=== PATIENT | male | born 1950 | race Caucasian/White ===

== ENCOUNTER 2018-09-11 17:11 | Inpatient (IN) | payer MEDICARE ==
[2018-09-11] VITALS (10 sets, daily range): BP systolic 108–137; BP diastolic 58–98; BMI 27.7
[~2018-09-11] VITALS: Ht 172.7 cm; Wt 78.1 kg
[2018-09-11 17:54] LABS: BASOPHILS 0.1 % (0-2); EOSINOPHILS 0 % (0-7); HEMATOCRIT 48.2 % (42.0-54.0); HEMOGLOBIN 15.9 g/dL (13.5-17.5); IMMATURE GRANULOCYTES 0.6 % (0-5); LYMPHOCYTES 3.1 % (15-50); MCH 30.1 pg (26.0-34.0); MCV 91.1 fL (80.0-100.0); MEAN PLATELET VOLUME 10.1 fL (7.4-10.4); MONOCYTES 5.9 % (2-11); NEUTROPHILS 90.3 % (40-80); PLATELET COUNT 155 10x3/uL (130-400); RBC 5.29 10x6/uL (4.20-6.10); RDW 15.6 % (11.5-14.5); WBC 7.1 10x3/uL (4.8-10.8)
[2018-09-11 18:09] LABS: ALBUMIN 2.3 g/dL (3.4-5.0); ANION GAP 7.5 mmol/L (8-16); BILIRUBIN - TOTAL 1.11 mg/dL (0.2-1.3); CALCIUM 8.8 mg/dL (8.5-10.1); CARBON DIOXIDE 34.3 mmol/L (21.0-32.0); CREATININE - SERUM 1.1 mg/dL (0.6-1.3); POTASSIUM - SERUM 4.8 mmol/L (3.5-5.1); PROTEIN - SERUM 7.1 g/dL (6.4-8.2)
[2018-09-11 19:43] LABS: CKMB 3.3 U/L (0.0-3.6); CREATINE KINASE 47 UL (21-232); TROPONIN-I 0.028 ng/mL (0.000-0.060)
--- NOTE | 2018-09-11 20:35 | NUR ---
RECEIVED PT FROM ED TO ROOM 2307 AT THIS TIME. PT IS INTUBATED AND SEDATED ON THE VENT. BILAT WRIST RESTRIANTS NOTED. PT DOES BECOME AGITATED WHEN MOVED OR TURNED. PT WILL OPEN EYES AND FOLLOW COMMANDS, WELL ANSWER QUESTIONS WITH A NOD. ADMISSION ASSESSMENT COMPLETED, SEE FLOWSHEET FOR DETAILS. PT'S DAUGHTER PRESENT AT BEDSIDE TO ANSWER QUESTIONS TO THE BEST OF HER ABILITY. VSS. WILL CONTINUE TO MONITOR.
[2018-09-11] MEDS ORDERED: FUROSEMIDE20 MG PO (21:28)
--- NOTE | 2018-09-11 23:00 | NUR ---
REASSESSMENT COMPLETED, SEE FLOWSHEET FOR DETAILS. PT IS IN BED INTUBATED AND SEDATED. PT REPOSITIONED FOR COMFORT. NO SIGNS OF ACUTE DISTRESS. WILL CONTINUE TO MONITOR.
[2018-09-12] VITALS (24 sets, daily range): BP systolic 83–175; BP diastolic 63–114; BMI 27.1
--- NOTE | 2018-09-12 01:00 | NUR ---
PT IS LAYING IN BED INTUBATED AND SEDATED. PT REPOSITIONED FOR COMFORT. NO SIGNS OF ACUTE DISTRESS. WILL CONTINUE TO MONITOR.
[2018-09-12 01:36] LABS: CKMB 1.8 U/L (0.0-3.6); CREATINE KINASE 25 UL (21-232); TROPONIN-I 0.048 ng/mL (0.000-0.060)
--- NOTE | 2018-09-12 03:00 | NUR ---
REASSESSMENT COMPLETED, SEE FLOWSHEET FOR DETAILS. PT IS RESTING IN BED WITH EYES CLOSED, SEDATED AND INTUBATED. NO SIGNS OF ACUTE DISTRESS NOTED. WILL CONTINUE TO MONITOR.
[2018-09-12 03:23] LABS: APPEARANCE TURBID (CLEAR); BILIRUBIN NEGATIVE (NEGATIVE); COLOR YELLOW (YELLOW); GLUCOSE NEGATIVE (NEGATIVE); KETONE SMALL mg/dL (NEGATIVE); NITRITE NEGATIVE (NEGATIVE); PROTEIN 1+ mg/dL (NEGATIVE); UROBILINOGEN NORMAL (NORMAL)
[2018-09-12 03:25] LABS: BACTERIA MODERATE /hpf (NONE SEEN); EPITHELIAL CELLS OCC /hpf (0-5); RED CELLS - URINE 0-5 /hpf (0-5); WHITE CELLS - URINE OCC /hpf (0-5)
[2018-09-12 03:26] LABS: AMORPHOUS SEDIMENT >1+ /lpf (NONE SEEN)
--- NOTE | 2018-09-12 07:25 | NUR ---
REPORT RECEIVED. ASSESSMENT COMPLETE PER FLOW SHEET. ORAL ENDOTRACH CARE ADM. REPOSITIONED FOR COMFORT. NO NEW CHANGES NOTED. LAB AT BEDSIDE. WILL CONTINUE TO MONITOR VSS
[2018-09-12 07:44] LABS: BASOPHILS 0.2 % (0-2); EOSINOPHILS 0 % (0-7); HEMATOCRIT 40.2 % (42.0-54.0); HEMOGLOBIN 13.1 g/dL (13.5-17.5); IMMATURE GRANULOCYTES 0.2 % (0-5); LYMPHOCYTES 8.1 % (15-50); MCH 29.5 pg (26.0-34.0); MCHC 32.6 g/dL (31.0-37.0); MCV 90.5 fL (80.0-100.0); MEAN PLATELET VOLUME 9.5 fL (7.4-10.4); MONOCYTES 9.2 % (2-11); NEUTROPHILS 82.3 % (40-80); PLATELET COUNT 133 10x3/uL (130-400); RBC 4.44 10x6/uL (4.20-6.10); RDW 15.7 % (11.5-14.5)
[2018-09-12 07:55] LABS: WBC 4.6 10x3/uL (4.8-10.8)
[2018-09-12 08:13] LABS: ALBUMIN 1.8 g/dL (3.4-5.0); ALKALINE PHOSPHATASE 49 U/L (46-116); ALT (SGPT) 17 U/L (10-68); BILIRUBIN - TOTAL 0.66 mg/dL (0.2-1.3); CALC OSMOLALITY 288 mosm/kg (275-300); CALCIUM 8.6 mg/dL (8.5-10.1); CARBON DIOXIDE 34.5 mmol/L (21.0-32.0); CHLORIDE - SERUM 99 mmol/L (98-107); CKMB 1.2 U/L (0.0-3.6); CREATINE KINASE 18 UL (21-232); CREATININE - SERUM 0.9 mg/dL (0.6-1.3); GLUCOSE 168 mg/dL (74-106); POTASSIUM - SERUM 4.2 mmol/L (3.5-5.1); PROTEIN - SERUM 5.7 g/dL (6.4-8.2); SODIUM 139 mmol/L (136-145); TROPONIN-I 0.032 ng/mL (0.000-0.060); UREA NITROGEN 33 mg/dL (7-18); eGFR NON AFRICAN AMERICAN 90 mL/min (90-120)
--- NOTE | 2018-09-12 08:23 | NUR ---
DR OGDEN AT BEDSIDE. GIVEN UPDATE. FIO2 DECREASED FROM 100% TO 80% PER ORDER WILL CONTINUE TO MONITOR
--- NOTE | 2018-09-12 08:33 | NUR ---
FAMILY CALLED CONSENTS OBTAINED FOR BEDSIDE BRONCHOSCOPY VERIFIED WITH ASAD HINKLE. WILL CONTINUE TO MONITOR
--- NOTE | 2018-09-12 09:20 | NUR ---
DR OGDEN AT BEDSIDE BRONCH ADM.
--- NOTE | 2018-09-12 11:00 | NUR ---
REASSESSMENT COMPLETE PER FLOW SHEET. VSS. NO NEW CHANGES WILL CONTNIUE TO MONITOR
--- NOTE | 2018-09-12 12:15 | NUR ---
VENT ALARMING ORAL CARE ADM NEEDS MET
--- NOTE | 2018-09-12 13:20 | NUR ---
ORAL ENDOTRACH CARE ADM. REPOSITIONED FOR COMFORT. WILL CONTINUE TO MONITOR
--- NOTE | 2018-09-12 15:00 | NUR ---
REASSESSMENT COMPLETE PER FLOW SHEET. VSS. NO NEW CHANGES PT RESTING COMFORTABLY WILL CONTINUE JARROD ONITOR
--- NOTE | 2018-09-12 15:37 | EC ---
PATIENT:JAMMIE GREEN DATE OF SERVICE: 09/11/18 SEX: M MEDICAL RECORD: [id number] DATE OF : [birth year] LOCATION:[facility] AGE OF PATIENT: 67 ADMISSION DATE: 09/11/18 REFERRING PHYSICIAN: INTERPRETING PHYSICIAN: RUSSELL AVILA MD ECHOCARDIOGRAM REPORT ECHO CHARGES 4 ECHO COMPLETE Date: 09/12/18 CLINICAL DIAGNOSIS: DYSPNEA ECHOCARDIOGRAPHIC MEASUREMENTS (adult normal given) AC root (d.<3.7cm) 3.6 cm LV Septum d (<1.2 cm> 1.6 cm Valve Excursion 1.8 cm LV Septum (systole) 1.7 cm Left Atria (s.<4.0cm> 4.2 cm LVPW d(<1.2cm) 1.6 cm RV (d.<2.3cm) 4.4 cm LVPW (sytole) 1.7 cm LV diastole(<5.6CM) 5.4 cm MV E-F(>70mm/sec) cm LV systole 4.5 cm LVOT Diameter 2.0 cm MV exc.(>10mm) 1.4 cm Est.ejection fraction (50-75%) % DOPPLER: LVIT cm/sec A 83.0 cm/sec E 45.0 cm/sec LA cm/sec RVSP 41 mmHg LVOT 74 cm/sec AOP1/2T m/s Asc. Ao 146 cm/sec RVOT 60 cm/sec RA cm/sec PA 85 cm/sec AV Gradient Peak 8.49 mmHg AV Mean 4.94 mmHg AV Area 1.5 cm MV Gradient Peak 3.95 mmHg MV Mean 1.37 mmHg MV Area cm COMMENTS: Form Presser: 2 VIKAS LEVY Food Processor: 3 Dr. Keenan TAPE# PACS Pericardial Effusion N DATE OF SERVICE: Adequate 2D, color flow, spectral Doppler, and M-Mode. LVH is present. LV internal dimensions are normal. LV is globally hypokinetic with reduced EF, estimated EF 30% to 35%. Aortic valve is tricuspid. No evidence of stenosis on Doppler interrogation. Left atrium is minimally dilated at 4.2 cm. Mitral valve shows no prolapse. Mild MR. Right-sided chambers are grossly normal. Mild TR. TRANSINT:[id number] Voice Confirmation ID: [id number] DOCUMENT ID: [id number] ECHOCARDIOGRAM REPORT [id number] JAMMIE GREEN,RUSSELL Beltrán MD at 1537 CC: [id number] DICTATION DATE: 09/12/18 1320 MEDIA RELATIONS DIRECTOR: 09/12/18 1453 ADM IN [facility] [address] [id number]
--- NOTE | 2018-09-12 16:55 | MORECARE ---
CASE MANAGEMENT DISCHARGE SUMMARY PATIENT: JAMMIE GREEN UNIT: [id number] ADM DATE: 09/11/18 AGE: 67 : 51 SEX: M ROOM/BED: D.2307 AUTHOR: DIRK COCHRAN PHYSICIAN: REFERRING PHYSICIAN: CATRACHO MERRITT DO DATE OF SERVICE: 09/12/18 Discharge Plan Patient Name: [facility]AMMIE GREEN [facility] [facility] 1950 Planned Disposition: Home Anticipated Discharge Date: Discharge Date: Expected LOS: Initial Reviewer: [email or web address] Initial Review Date: 09/11/2018 Generated: 09/12/18 5:55 pm Patient Name: JAMMIE GREEN Page [phone] at 1655 All edits/amendments must be made on the electronic document DICTATION DATE: 09/12/181653 ZOO CARETAKER: CHRIS 09/12/181653 RPT#: [id number] MD DATE: STATUS: ADM IN [facility] [address] [place] [address] END OF REPORT
--- NOTE | 2018-09-12 17:00 | NUR ---
ORAL ENDOTRACH CARE ADM. REPOSITIONED FOR COMFORT VSS WILL CONTINUE TO MONITOR
--- NOTE | 2018-09-12 17:04 | MORECARE ---
CASE MANAGEMENT DISCHARGE SUMMARY PATIENT: JAMMIE GREEN UNIT: [id number] ADM DATE: 09/11/18 AGE: 67 : 51 SEX: M ROOM/BED: D.2307 AUTHOR: DIRK COCHRAN PHYSICIAN: REFERRING PHYSICIAN: CATRACHO MERRITT DO DATE OF SERVICE: 09/12/18 Discharge Plan Patient Name: JAMMIE GREEN [facility] [facility] 1950 Planned Disposition: Home Anticipated Discharge Date: Discharge Date: Expected LOS: Initial Reviewer: [email or web address] Initial Review Date: 09/11/2018 Generated: 09/12/18 6:04 pm DCPIA - Discharge Planning Initial Assessment Updated by [email or web address]: Becky Fontenot on 09/12/18 4:58 pm * Is the patient Alert and Oriented? Yes * How many steps to enter\exit or inside your home? * PCP CORWIN BEAL * Pharmacy [facility] * Preadmission Environment Home with Family * ADLs Independent * Equipment Oxygen * Other Equipment HOME 02 & PORT 02, NEBULIZER - [facility] * List name and contact numbers for known caregivers / representatives who currently or will assist patient after discharge: ABIOLA ALONSO - DAUGHTER- [phone] * Verbal permission to speak to the caregivers and representatives has been obtained from the patient. N/A * Community resources currently utilized None * Additional services required to return to the preadmission environment? No * Can the patient safely return to the preadmission environment? Yes * Has this patient been hospitalized within the prior 30 days at any hospital? Yes Last DP export: 09/12/18 3:55 p Patient Name: JAMMIE GREEN Page [phone] at 1704 All edits/amendments must be made on the electronic document DICTATION DATE: 09/12/181703 RADIATION ONCOLOGY MANAGER: CHRIS 09/12/181703 RPT#: [id number] DC DATE: STATUS: ADM IN [facility] [address] [place] [address] END OF REPORT
--- NOTE | 2018-09-12 17:15 | MORECARE ---
CASE MANAGEMENT DISCHARGE SUMMARY PATIENT: JAMMIE GREEN UNIT: [id number] ADM DATE: 09/11/18 AGE: 67 : 51 SEX: M ROOM/BED: D.2307 AUTHOR: SAMMIE,DOC PHYSICIAN: REFERRING PHYSICIAN: CATRACHO MERRITT DO DATE OF SERVICE: 09/12/18 Discharge Plan Patient Name: JAMMIE GREEN Facility: [facility]:[place] : 1950 Planned Disposition: Home Anticipated Discharge Date: Discharge Date: Expected LOS: Initial Reviewer: [email or web address] Initial Review Date: 09/11/2018 Generated: 09/12/18 6:15 pm Comments DCP- Discharge Planning Updated by [email or web address]: Becky Fontenot on 09/12/18 4:[address] Patient Name: JAMMIE GREEN Admission Status: ER Accout number: [id number] Admission Date: 09-11-2018 : 1950 Admission Diagnosis: Attending: CATRACHO MERRITT Current LOS: 1 Anticipated DC Date: Planned Disposition: Home Primary Insurance: MEDICARE A & B Discharge Planning Comments: CM met with daughter at bedside patient is currently intubated on vent. CM explained role and received verbal consent to evaluate. Patient lives with daughter Poornima. Poornima stated that the patient was in hospital in [place] 3 weeks ago for COPD. He was discharged with home and portable 02 with [facility]. They had set up patient with Home Health but patient refused once they came to admit. Poornima states that he will need home health when discharged from here. Poornima will get back with CM on what agency she wants to go with. CM will continue to follow and assist as needed with discharge planning / needs. Elastic Yarn Twister: Becky Fontenot DCPIA - Discharge Planning Initial Assessment Updated by [email or web address]: Becky Fontenot on 09/12/18 4:58 pm * Is the patient Alert and Oriented? Yes * How many steps to enter\exit or inside your home? * PCP CORWIN BEAL * Pharmacy [facility] * Preadmission Environment Home with Family * ADLs Independent * Equipment Oxygen * Other Equipment HOME 02 & PORT 02, NEBULIZER - [facility] * List name and contact numbers for known caregivers / representatives who currently or will assist patient after discharge: POORNIMA ALONSO - DAUGHTER- [phone] * Verbal permission to speak to the caregivers and representatives has been obtained from the patient. N/A * Community resources currently utilized None * Additional services required to return to the preadmission environment? No * Can the patient safely return to the preadmission environment? Yes * Has this patient been hospitalized within the prior 30 days at any hospital? Yes Last DP export: 09/12/18 4:04 p Patient Name: JAMMIE GREEN Page [phone] at 1715 All edits/amendments must be made on the electronic document DICTATION DATE: 09/12/181714 CURRICULUM DEVELOPMENT SPECIALIST: CHRIS 09/12/181714 RPT#: [id number] DC DATE: STATUS: ADM IN [facility] [address] [place] [address] END OF REPORT
--- NOTE | 2018-09-12 17:17 | CN ---
PATIENT NAME:JAMMIE GREEN MEDICAL RECORD: [id number] : 52 LOCATION:[facility]2307 ADMIT DATE: 09/11/18 ACCOUNT: [id number] CONSULTING PHYSICIAN: KWESI BATRES MD REFERRING PHYSICIAN: CATRACHO MERRITT DO DATE OF CONSULTATION: 09/12/2018 CARDIOLOGY CONSULTATION DIAGNOSES: 1. Atrial fibrillation. 2. Tachycardia. 3. Respiratory failure. 4. Pneumonia. 5. Pulmonary edema. 6. Coronary artery disease. 7. Congestive heart failure. HISTORY OF PRESENT ILLNESS: Mr. Green presents to an [facility] hospital with acute respiratory failure requiring intubation. He has a daughter, who states that he does have a history of coronary artery disease. He has had a myocardial infarction in the past and has had congestive heart failure in the past as well; however, his cardiac details are unknown. He is now intubated. Chest x-ray is compatible with bilateral pneumonia as well as pulmonary edema. He is in atrial fibrillation. The daughter thinks that this is chronic. His heart rate is in the 110-120 range. It is unknown what medications he is on at home. PHYSICAL EXAMINATION: GENERAL APPEARANCE: Well-nourished, well-developed, appears stated age. Level of distress, comfortable. PSYCHIATRIC: Mental status, alert, normal affect. Orientation, oriented to time, place and person. EYES: Lids and conjunctiva, noninjected. No discharge, no pallor. ENT: Lips, teeth, gums, normal dentition. Oropharynx, no cyanosis, no pallor. NECK: Carotid arteries, bilateral normal upstroke, no bruits, no thrills. JUGULAR VEINS: No jugular venous pressure or distention. CERVICAL LYMPH NODES: Nontender, nonenlarged. THYROID: Not enlarged. Nontender. No nodules. LUNGS: Respiratory effort, unlabored. CHEST: He has dullness bilaterally at the bases along with crackles above that. CARDIOVASCULAR: Irregularly irregular, tachycardic with atrial fibrillation. EXTREMITIES: No cyanosis, no edema. Peripheral pulses, full and equal in all extremities, except as noted. No bruits appreciated. ABDOMEN: Soft, nondistended. Normal aorta. No bruit. Nontender. No masses. Liver, nontender, no hepatomegaly. Spleen, nontender, no splenomegaly. MUSCULOSKELETAL: No joint tenderness. No joint swelling. No erythema. NEUROLOGICAL: Normal gait, normal strength, normal tone. SKIN: Warm and dry. OVERALL IMPRESSION: Atrial fibrillation. At this time, his systolic blood pressure is in the 90-100 range limiting use of beta-blockers or calcium channel blockers. We will use digoxin 0.5 mg IV load, followed by 0.25 mg times 4 doses. Hopefully, this will give better heart rate control along with not dropping his blood pressure any further. We will get an echocardiogram today to evaluate his LV function in light of the pulmonary edema and possible congestive CONSULT REPORT [id number] JAMMIE GREEN heart failure. TRANSINT:[id number] Voice Confirmation ID: [id number] DOCUMENT ID: [id number] KWESI BATRES MD at 1717 CC: [id number] DICTATION DATE: 09/12/18907 TICKET MAKER: 09/12/18 0952 ADM IN [facility] [address] [place] [address]
--- NOTE | 2018-09-12 19:43 | NUR ---
REPORT RECEIVED. PT SEDATED, ON VENT A/C 20, 550, 50%, 5.0. ABRAHAM CATHETER PATENT WITH KEYANA URINE NOTED. HR 85-90. BP 159/103, SPO2 93%. WILL CONTINUE TO OBSERVE.
[2018-09-13] VITALS (24 sets, daily range): BP systolic 92–180; BP diastolic 55–113
[2018-09-13 04:31] LABS: BASOPHILS 0.1 % (0-2); EOSINOPHILS 0 % (0-7); HEMATOCRIT 41.6 % (42.0-54.0); HEMOGLOBIN 13.3 g/dL (13.5-17.5); IMMATURE GRANULOCYTES 0.4 % (0-5); MCH 29.4 pg (26.0-34.0); MCV 91.8 fL (80.0-100.0); NEUTROPHILS 82.5 % (40-80); RBC 4.53 10x6/uL (4.20-6.10); RDW 15.9 % (11.5-14.5)
[2018-09-13 04:37] LABS: PLATELET COUNT 170 10x3/uL (130-400)
[2018-09-13 04:48] LABS: ALBUMIN 1.9 g/dL (3.4-5.0); ALKALINE PHOSPHATASE 52 U/L (46-116); ALT (SGPT) 16 U/L (10-68); BILIRUBIN - TOTAL 0.55 mg/dL (0.2-1.3); CALC OSMOLALITY 288 mosm/kg (275-300); CALCIUM 8.5 mg/dL (8.5-10.1); CARBON DIOXIDE 37.6 mmol/L (21.0-32.0); CHLORIDE - SERUM 100 mmol/L (98-107); CREATININE - SERUM 0.9 mg/dL (0.6-1.3); GLUCOSE 141 mg/dL (74-106); MAGNESIUM - SERUM 2.1 mg/dL (1.8-2.4); POTASSIUM - SERUM 4.3 mmol/L (3.5-5.1); SODIUM 140 mmol/L (136-145); UREA NITROGEN 35 mg/dL (7-18); eGFR NON AFRICAN AMERICAN 90 mL/min (90-120)
--- NOTE | 2018-09-13 07:15 | NUR ---
REPORT RECIEVED, SHIFT ASSESSMENT COMPLETE, PT IS SEDATED ON VENT, ALL PPP, VSS, WILL CON'T TO MONITOR
--- NOTE | 2018-09-13 09:15 | NUR ---
DR. MERRITT AT BEDSIDE, UPDATE GIVEN, NEW ORDERS RECIEVED
--- NOTE | 2018-09-13 09:54 | NUR ---
UPDATE CALLED TO DR. BATRES, NEW ORDERS RECIEVED
--- NOTE | 2018-09-13 10:07 | NUR ---
UPDATE GIVEN TO DAUGHTER ABIOLA OVER PHONE, PASSWORD GIVEN
--- NOTE | 2018-09-13 11:15 | NUR ---
Shift REASSESSMENT COMPLETED- NO NEW CHANGES NOTED, PT RESTING, VITAL SIGNS STABLE AND WILL CONTINUE TO MONITOR
[2018-09-13 12:13] LABS: FUNGUS STAIN Final report (())
[2018-09-13 12:13] LABS: FUNGUS STAIN Final report (())
--- NOTE | 2018-09-13 13:30 | NUR ---
PATIENT TURNED, HAIR WASHED, PERINEAL CARE PROVIDED, ORAL CARE PROVIDED, PATIENT RESTING, WILL CONTINUE TO MONITOR VITAL SIGNS AND RESTRAINTS, BED IN LOW POSITION, BED LOCKED, HOB 40, AND CALL LIGHT WITHIN REACH
--- NOTE | 2018-09-13 16:16 | NUR ---
PATIENT REASSESMENT COMPLETED. PATIENT TURNED. VITAL SIGNS STABLE AND WILL CONTINUE TO MONITOR BED LOW IN POSITION. BED LOCKED. CALL LIGHT WITHIN REACH.
--- NOTE | 2018-09-13 17:00 | NUR ---
PATIENT TURNED, LEFT FOREARM IV DC'D.. NEW 20 GAUGE IV STARTED ON LEFT FOREARM SIGNED AND DATED, SUCTIONED PATIENT, HEELS RAISED, PARTIAL LINEN CHANGE, BED LOW AND LOCKED IN POSITION, PATIENT SLEEPING, VITAL SIGNS STABLE AND WILL CONTINUE TO MONITOR
[2018-09-13 17:10] LABS: ACID FAST SMEAR Negative (()); AFB SPECIMEN PROCESSING Concentration (())
[2018-09-13 17:10] LABS: ACID FAST SMEAR Negative (()); AFB SPECIMEN PROCESSING Concentration (())
--- NOTE | 2018-09-13 19:20 | NUR ---
PT RECEIVED ON SEDATED ON VENT A/C, 20,550,50%,5.0. VSS. ABRAHAM PATENT WITH KEYANA URINE NOTED. NO S/S OF DISTRESS. ASSESSMENT COMPLETED, SEE FLOW SHEET. WILL CONTINUE TO OBSERVE.
--- NOTE | 2018-09-13 22:05 | NUR ---
CONTINUES VENT WITH SEDATION. MEDICATIONS GIVEN PER MAR. PT TOLERATED WELL. ORAL CARE PROVIDED AMD REPOSITIONED. VSS. WILL CONTINUE TO OBSERVE.
--- NOTE | 2018-09-13 23:30 | NUR ---
CONTINUES VENT WITH SEDATION. REASSESSMENT COMPLETED. SEE FLOW SHEET.
[2018-09-14] VITALS (29 sets, daily range): BP systolic 26–150; BP diastolic 67–110
--- NOTE | 2018-09-14 01:45 | NUR ---
PT REPOSITIONED, VSS. NO S/S OF DISTRESS. WILL CONTINUE TO OBSERVE.
[2018-09-14 04:20] LABS: BASOPHILS 0.1 % (0-2); EOSINOPHILS 0.1 % (0-7); HEMATOCRIT 45.2 % (42.0-54.0); HEMOGLOBIN 14.6 g/dL (13.5-17.5); IMMATURE GRANULOCYTES 0.9 % (0-5); LYMPHOCYTES 7.8 % (15-50); MCH 29.7 pg (26.0-34.0); MCHC 32.3 g/dL (31.0-37.0); MCV 91.9 fL (80.0-100.0); MEAN PLATELET VOLUME 9.8 fL (7.4-10.4); MONOCYTES 10.4 % (2-11); NEUTROPHILS 80.7 % (40-80); PLATELET COUNT 177 10x3/uL (130-400); RBC 4.92 10x6/uL (4.20-6.10); RDW 16.2 % (11.5-14.5)
[2018-09-14 04:40] LABS: WBC 9.9 10x3/uL (4.8-10.8)
[2018-09-14 04:41] LABS: ALBUMIN 1.9 g/dL (3.4-5.0); ALKALINE PHOSPHATASE 63 U/L (46-116); ALT (SGPT) 17 U/L (10-68); BILIRUBIN - TOTAL 0.69 mg/dL (0.2-1.3); CALC OSMOLALITY 295 mosm/kg (275-300); CALCIUM 8.4 mg/dL (8.5-10.1); CARBON DIOXIDE 37.5 mmol/L (21.0-32.0); CHLORIDE - SERUM 102 mmol/L (98-107); GLUCOSE 129 mg/dL (74-106); MAGNESIUM - SERUM 2.1 mg/dL (1.8-2.4); PROTEIN - SERUM 6.3 g/dL (6.4-8.2); SODIUM 143 mmol/L (136-145); UREA NITROGEN 37 mg/dL (7-18); eGFR NON AFRICAN AMERICAN 79 mL/min (90-120)
--- NOTE | 2018-09-14 07:15 | NUR ---
REPORT RECIEVED. SHIFT ASSESSMENT COMPLETED. PATIENT TURNED. PATIENT SUCTIONED. PATIENT VERY SEDATED WEANING PROPOFOL PER CARMEL SCALE. BED ALARM ON. BED LOW AND LOCKED. SIDE RAILS X2. ID BAND IN PLACE. CALL LIGHT WITHIN REACH. VITAL SIGNS STABLE WILL CONTINUE TO MONITOR
--- NOTE | 2018-09-14 09:00 | NUR ---
PATIENT SEDATED AND TURNED. ORAL CARE PROVIDED. HEELS RAISED OFF BED. TUBE FEEDING LINE CHANGED PER PROTOCOL. PROPOFOL LINE CHANGED PER PROTOCOL. VSS WILL CONTINUE TO MONITOR.
--- NOTE | 2018-09-14 09:32 | NUR ---
Nutrition follow-up: Pt intubated, sedated. Sedation vacation today. Pressor support trials Glucerna 1.0 started @ 20 ml/hr per Dr. Rose with increase to goal rate of 30 ml/hr Labs reviewed WT: 181# RDN following.
--- NOTE | 2018-09-14 11:00 | NUR ---
PATIENT TURNED. PATIENT BATHED. PARTIAL LINEN CHANGE. SEDATION DECREASED PER CARMEL SCALE. BED LOW AND LOCKED IN POSITION. CALL LIGHT WITHIN REACH.
--- NOTE | 2018-09-14 13:10 | NUR ---
PT SEDATED. PATIENT TURNED PATIENT ON 50% FIO2 22 RR ON MECH VENT. PATIENT FAILED CPAP TRIAL. WILL CONTINUE TO MONITOR. VITAL SIGNS STABLE. CALL LIGHT WITHIN REACH. BED LOW AND LOCKED IN POSITION.
--- NOTE | 2018-09-14 15:31 | NUR ---
PATIENT ALERT AND ORIENTED X4. EVEN UNLABORED BREATHING. SHIFT REASSESMENT COMPLETED. NO CHANGES NOTED. PATIENT STATED RELIEF OF SHOULDER PAIN. SUICIDE RISK ASSESMENT COMPLETED. PATIENT TOLERATED CLEAR LIQUIDS. WILL PROMOTE REST PERIODS. CALL LIGHT WITHIN REACH. BED LOW LOCKED IN POSITION. VSS WILL CONTINUE TO MONITOR.
--- NOTE | 2018-09-14 17:09 | NUR ---
SHIFT REASSESMENT COMPLETED. NO CHANGES NOTED. NEW ABRAHAM STAT LOCK PROVIDED. PATIENT SEDATED. VSS. WILL CONTINUE TO MONITOR.
--- NOTE | 2018-09-14 19:00 | NUR ---
SHIFT ASSESSMENT COMPLETED. VSS.
[2018-09-15] VITALS (16 sets, daily range): BP systolic 125–162; BP diastolic 79–106
--- NOTE | 2018-09-15 01:00 | NUR ---
2300- REASSESSMENT COMPLETE. VSS. 0100- RT AT BEDSIDE. VSS.
--- NOTE | 2018-09-15 03:00 | NUR ---
REASSESSMENT COMPLETE. VSS.
[2018-09-15 03:06] LABS: BASOPHILS 0.3 % (0-2); EOSINOPHILS 0.3 % (0-7); HEMATOCRIT 45.4 % (42.0-54.0); HEMOGLOBIN 14.8 g/dL (13.5-17.5); IMMATURE GRANULOCYTES 4.1 % (0-5); LYMPHOCYTES 10.1 % (15-50); MCH 29.7 pg (26.0-34.0); MCHC 32.6 g/dL (31.0-37.0); MCV 91.2 fL (80.0-100.0); MEAN PLATELET VOLUME 10.2 fL (7.4-10.4); MONOCYTES 11.5 % (2-11); NEUTROPHILS 73.7 % (40-80); PLATELET COUNT 182 10x3/uL (130-400); RBC 4.98 10x6/uL (4.20-6.10); RDW 16.3 % (11.5-14.5)
[2018-09-15 03:18] LABS: ALBUMIN 1.8 g/dL (3.4-5.0); ALKALINE PHOSPHATASE 56 U/L (46-116); ALT (SGPT) 17 U/L (10-68); CALC OSMOLALITY 288 mosm/kg (275-300); CALCIUM 8.2 mg/dL (8.5-10.1); CARBON DIOXIDE 37.4 mmol/L (21.0-32.0); CHLORIDE - SERUM 102 mmol/L (98-107); CREATININE - SERUM 0.9 mg/dL (0.6-1.3); GLUCOSE 125 mg/dL (74-106); MAGNESIUM - SERUM 2.1 mg/dL (1.8-2.4); POTASSIUM - SERUM 4.1 mmol/L (3.5-5.1); PROTEIN - SERUM 6.1 g/dL (6.4-8.2); SODIUM 141 mmol/L (136-145); TRIGLYCERIDE 169 mg/dL (30-200); UREA NITROGEN 33 mg/dL (7-18); eGFR NON AFRICAN AMERICAN 90 mL/min (90-120)
--- NOTE | 2018-09-15 05:00 | NUR ---
VSS. WILL CONTINUE TO MONITOR.
--- NOTE | 2018-09-15 06:41 | NUR ---
NO VISUAL CUES OF DISTRESS NOTED. VSS. WILL MONITOR.
--- NOTE | 2018-09-15 07:32 | NUR ---
REPORT RECIEVED. PATIENT ON VENT AND SEDATED. ASSESSMENT COMPLETED. VSS. WILL CONTINUE TO MONITOR.
--- NOTE | 2018-09-15 09:00 | NUR ---
PT TURNED. PATIENT IS AWAKE. ORAL CARE PROVIDED. BED LOW AND LOCKED IN PLACE. J
--- NOTE | 2018-09-15 09:29 | NUR ---
Nutrition follow-up: TF on hold due to possible extubation today Labs reviewed Wt: 190# RDN following.
--- NOTE | 2018-09-15 13:00 | NUR ---
PATIENT ON BIPAP AT 40%. PATIENT BREATHING 30 BPM. PATIENT TURNED AND COMFORTED. PATIENT STATES 0/10 PAIN. VSS. WILL CONTINUE TO MONITOR AND CALM PATIENT.
--- NOTE | 2018-09-15 15:00 | NUR ---
PATIENT ALERT AND ORIENTED TO SELF. PATIENT IS A LITTLE WEAK. PATIENT CALM AND WATCHING TV. ABRAHAM CARE DONE. REASSESMENT DONE. NO CHANGES NOTED. PATIENT TOLERATED BIPAP WELL. SPO2 97%. CHG BATH DONE AT THIS TIME. ALL LINES UNTANGLED AND LABELED. BED LOW AND LOCKED IN POSITION. CALL LIGHT WITHIN REACH.
--- NOTE | 2018-09-15 16:49 | NUR ---
SPEECH IN ROOM PERFOMRING SWALLOW EVAL.
--- NOTE | 2018-09-15 17:02 | NUR ---
SPOKE WITH PATIENTS DAUGHTER ABIOLA ON THE PHONE TO GIVE UPDATE. PASSOWRD GIVEN. DAUGHTER STATED SHE WOULD VISIT ON 09/16/18.
--- NOTE | 2018-09-15 19:00 | NUR ---
SHIFT ASSESSMENT COMPLETE. NO VISUAL CUES OF DISTRESS NOTED. VSS STABLE. WILL MONITOR,
--- NOTE | 2018-09-15 21:00 | NUR ---
VSS STABLE. NO VISUAL CUES OF DISTRESS NOTED. WILL CONTINUE TO MONITOR.
--- NOTE | 2018-09-15 23:00 | NUR ---
REASSESSMENT COMPLETE. VSS STABLE.
[2018-09-16] VITALS (18 sets, daily range): BP systolic 109–165; BP diastolic 83–106; Ht 172.7 cm; Wt 78.1 kg
--- NOTE | 2018-09-16 01:00 | NUR ---
NO VISUAL CUES OF DISTRESS NOTED. VSS STABLE. WILL CONTINUE TO MONITOR.
[2018-09-16 03:13] LABS: BASOPHILS 0.3 % (0-2); EOSINOPHILS 2.2 % (0-7); HEMATOCRIT 46.6 % (42.0-54.0); IMMATURE GRANULOCYTES 4.7 % (0-5); LYMPHOCYTES 9.3 % (15-50); MCH 29.8 pg (26.0-34.0); MCHC 32.2 g/dL (31.0-37.0); MCV 92.6 fL (80.0-100.0); MONOCYTES 9.4 % (2-11); NEUTROPHILS 74.1 % (40-80); PLATELET COUNT 201 10x3/uL (130-400); RBC 5.03 10x6/uL (4.20-6.10); RDW 16.3 % (11.5-14.5); WBC 10.4 10x3/uL (4.8-10.8)
[2018-09-16 03:35] LABS: ALBUMIN 1.9 g/dL (3.4-5.0); ALKALINE PHOSPHATASE 54 U/L (46-116); ALT (SGPT) 14 U/L (10-68); BILIRUBIN - TOTAL 1.02 mg/dL (0.2-1.3); CALC OSMOLALITY 281 mosm/kg (275-300); CALCIUM 9.2 mg/dL (8.5-10.1); CARBON DIOXIDE 34.6 mmol/L (21.0-32.0); CHLORIDE - SERUM 100 mmol/L (98-107); CREATININE - SERUM 0.8 mg/dL (0.6-1.3); GLUCOSE 99 mg/dL (74-106); MAGNESIUM - SERUM 2.1 mg/dL (1.8-2.4); POTASSIUM - SERUM 4.1 mmol/L (3.5-5.1); PROTEIN - SERUM 6.6 g/dL (6.4-8.2); SODIUM 138 mmol/L (136-145); UREA NITROGEN 30 mg/dL (7-18); eGFR NON AFRICAN AMERICAN > 90 mL/min (90-120)
--- NOTE | 2018-09-16 08:05 | NUR ---
DISCUSSED DOBUTIMINE GTT WITH DR BATRES BY PHONE. REPORTED RATE AND BP. DR BATRES ORDERED TO DC DOBUTIMINE GTT. REPORTED BP 165/105 AND HR AFIB AT 102 TO 142.
--- NOTE | 2018-09-16 09:04 | NUR ---
PT AT 20% OF HIS MEAL. SPO2 DROPS TO 88% AND SL SOB. PLACED BACK ON BIPAP 40%,
--- NOTE | 2018-09-16 13:21 | NUR ---
1100- DR MERRITT AND DR HUDSON HERE. PT ON BIPAP. RESP EASY.
--- NOTE | 2018-09-16 13:22 | NUR ---
1200- PT OFF BIPAP AND LUNCH TRAY SERVED. FAMILY AT BS. PT ON 4L OXYMIZER.
--- NOTE | 2018-09-16 16:01 | NUR ---
PT ASKING FOR BIPAP TO BE TAKEN OFF. BIPAP TAKEN OFF AND 4L OXYMIZER PLACED. PT TOOK OXYMIZER OFF. SPO2 DROPS TO 84% QUICKLY. BIPAP PLACED BACK ON AT 40% AND SPO2 RETURNS TO 95% AFTER FEW MIN.
--- NOTE | 2018-09-16 19:00 | NUR ---
PT IN BED IN LOW FOWLERS POSITION. NO VISUAL CUES OF DISTRESS NOTE. VSS. WILL MONITOR,
--- NOTE | 2018-09-16 21:00 | NUR ---
PT IN BED IN LOW FOWLERS POSITION. NO VISUAL CUES OF DISTRESS NOTE. VSS. WILL MONITOR,
--- NOTE | 2018-09-16 23:00 | NUR ---
PT IN BED IN LOW FOWLERS POSITION. NO VISUAL CUES OF DISTRESS NOTE. VSS. WILL MONITOR,
[2018-09-17] VITALS (24 sets, daily range): BP systolic 104–145; BP diastolic 72–106
--- NOTE | 2018-09-17 01:00 | NUR ---
PT IN BED IN LOW FOWLERS POSITION. NO VISUAL CUES OF DISTRESS NOTE. VSS. WILL MONITOR,
[2018-09-17 03:05] LABS: BASOPHILS 0.4 % (0-2); EOSINOPHILS 4.7 % (0-7); HEMATOCRIT 46.7 % (42.0-54.0); HEMOGLOBIN 15.4 g/dL (13.5-17.5); IMMATURE GRANULOCYTES 5.7 % (0-5); LYMPHOCYTES 11.7 % (15-50); MCH 29.7 pg (26.0-34.0); MEAN PLATELET VOLUME 9.7 fL (7.4-10.4); MONOCYTES 9.6 % (2-11); NEUTROPHILS 67.9 % (40-80); PLATELET COUNT 205 10x3/uL (130-400); RBC 5.18 10x6/uL (4.20-6.10); RDW 15.8 % (11.5-14.5); WBC 10.2 10x3/uL (4.8-10.8)
[2018-09-17 03:12] LABS: MCV 90.2 fL (80.0-100.0)
[2018-09-17 03:17] LABS: CALC OSMOLALITY 276 mosm/kg (275-300); CALCIUM 8.7 mg/dL (8.5-10.1); CARBON DIOXIDE 33.3 mmol/L (21.0-32.0); CHLORIDE - SERUM 97 mmol/L (98-107); CREATININE - SERUM 0.8 mg/dL (0.6-1.3); GLUCOSE 108 mg/dL (74-106); MAGNESIUM - SERUM 1.8 mg/dL (1.8-2.4); POTASSIUM - SERUM 4.3 mmol/L (3.5-5.1); SODIUM 135 mmol/L (136-145); UREA NITROGEN 28 mg/dL (7-18); eGFR NON AFRICAN AMERICAN > 90 mL/min (90-120)
--- NOTE | 2018-09-17 07:30 | NUR ---
ON BI PAP 40% RESTING COMFORTABLY NO DISTRESS. IV RIGHT WRIST WITHOUT REDNESS OR SWELLING INFUSING WITH NS AT 10 ML HOUR. MONITOR IRREGULAR. ABRAHAM CATH PATENT DRAINING CLEAR YELLOW URINE.
--- NOTE | 2018-09-17 09:30 | NUR ---
AWAKE OFF BIPAP ON NC. COUGHING UP LARGE AMOUNT WHITE CLEAR SPUTUM. BREAKFAST SERVED. DENIES PAIN. STATES LEFT LEG HAS BEEN SWOLLEN FOR ABOUT AN YEAR NOW. STATES LAST NIGHT BEST NIGHT SLEEP HE HAS HAD IN ALONG TIME. FEEDING SELF PO MEDS GIVEN NO DIFFICULTY SWALLOWING. DR. MERRITT HERE OK TO GET UP IN CHAIR TODAY
--- NOTE | 2018-09-17 11:30 | NUR ---
LUNCH SERVED ATE WELL. NO SWALLOWING DIFFICULTIES. UP IN CHAIR AT BEDSIDE WITH ASSISTANCES FROM STAFF. COULD NOT STAND ALONE. TOTALLY DEPENDENT ON STAFF TO STAND UP AND TRANSFER. RESP DEEP AND REGULAR GOOD COUGH EFFORT THICK WHITE CLEAR SPUTUM.
--- NOTE | 2018-09-17 13:30 | NUR ---
RETURN TO BED PER PHYSICAL THERAPY. SOME IMPROVEMENT STANDING, STILL NEEDS ASSISTANCES TO TRANSFER. TOLERATED FAIR.
--- NOTE | 2018-09-17 15:30 | NUR ---
REFUSES BATH WANTS TO HELP HIM. RESTING WELL WATCHING TV. GOOD COUGH EFFORT.
--- NOTE | 2018-09-17 16:30 | NUR ---
SUPPER TRAY SERVED. ATE WELL. NO DISTRESS. WATCHING TV. NO DIFFICULTY SWALLOWING. STATES HE COULD EAT HAMBURGER IF GIVEN TO HIM.
--- NOTE | 2018-09-17 18:30 | NUR ---
NO RESP DISTRESS. GOOD COUGH EFFORT THICK WHITE CLEAR SPUTUM. WATHCING TV. GOOD APPETITE. TAKING FLUIDS WELL.
--- NOTE | 2018-09-17 19:00 | NUR ---
REPORT RECEIVED. RECEIVED PATIENT IN BED. AWAKE AND ALERT. ORIENTED X 4. SPEECH CLEAR. SHIFT ASSESSMENT COMPLETED AT THIS TIME WITH NO ACUTE DISTRESS OBSERVED. MONITORS CONNECTED TO PATIENT WITH ALARMS SET. VSS
--- NOTE | 2018-09-17 21:00 | NUR ---
AWAKE AND ALERT. VSS.
--- NOTE | 2018-09-17 23:00 | NUR ---
BIPAP SECURED ON PATIENT AT ORDERED SETTINGS. REASSESSMENT COMPLETED PER FLOW SHEET AT THIS TIME WITH NO CHANGES OR ACUTE DISTRESS OBSERVED. VSS
[2018-09-18] VITALS (24 sets, daily range): BP systolic 108–164; BP diastolic 69–107
--- NOTE | 2018-09-18 01:00 | NUR ---
RESTING WITH EYES CLOSED, ROUSES EASILY. VSS.
--- NOTE | 2018-09-18 03:00 | NUR ---
REASSESSMENT COMPLETED PER FLOW SHEET AT THIS TIME WITH NO CHANGES OR ACUTE DISTRESS OBSERVED. VSS
[2018-09-18 03:53] LABS: BASOPHILS 0.2 % (0-2); EOSINOPHILS 5.7 % (0-7); HEMATOCRIT 45.8 % (42.0-54.0); HEMOGLOBIN 15.2 g/dL (13.5-17.5); IMMATURE GRANULOCYTES 4.7 % (0-5); LYMPHOCYTES 12.1 % (15-50); MCHC 33.2 g/dL (31.0-37.0); MCV 90.5 fL (80.0-100.0); MEAN PLATELET VOLUME 9.7 fL (7.4-10.4); MONOCYTES 10.1 % (2-11); NEUTROPHILS 67.2 % (40-80); PLATELET COUNT 223 10x3/uL (130-400); RBC 5.06 10x6/uL (4.20-6.10); RDW 15.6 % (11.5-14.5); WBC 9.4 10x3/uL (4.8-10.8)
[2018-09-18 04:04] LABS: CALC OSMOLALITY 274 mosm/kg (275-300); CALCIUM 8.5 mg/dL (8.5-10.1); CARBON DIOXIDE 37.7 mmol/L (21.0-32.0); CHLORIDE - SERUM 97 mmol/L (98-107); GLUCOSE 101 mg/dL (74-106); MAGNESIUM - SERUM 1.7 mg/dL (1.8-2.4); POTASSIUM - SERUM 4.3 mmol/L (3.5-5.1); SODIUM 135 mmol/L (136-145); UREA NITROGEN 27 mg/dL (7-18); eGFR NON AFRICAN AMERICAN 79 mL/min (90-120)
--- NOTE | 2018-09-18 05:00 | NUR ---
AWAKE AND ALERT. VSS. NO ACUTE DISTRESS OBSERVED. CALL LIGHT IN REACH
--- NOTE | 2018-09-18 07:00 | NUR ---
REPORT RECIEVED. ASSESMENT COMPLETED. PATIENT STABLE. PATIENT ON 4 L NC. CALL LIGHT WITHIN REACH. WILL CONTINUE TO MONITOR.
--- NOTE | 2018-09-18 09:00 | NUR ---
PATIENT ALERT AND ORIENTED. PATIENT AMBULATED TO CHAIR. PATIENT ON 3L NC. PATIENT HAD BM. COMPLETE LINEN CHANGE. VITAL SIGNS STABLE. WILL CONTINUE TO MONITOR. CALL LIGHT WITHIN REACH. BED LOW AND LOCKED IN POSITION.
--- NOTE | 2018-09-18 09:04 | NUR ---
NUTRITION F/U PT TOLERATING REG [facility] SOFT DIET. 100% INTAKE BREAKFAST THIS AM. WILL CONTINUE TO MONITOR PO INTAKE, PT PROGRESS. RD FOLLOWING
--- NOTE | 2018-09-18 11:03 | NUR ---
LEIGH CHEEK. 950 ML OUT. PATIENT SITTING UP IN BED. VITAL SIGNS STABLE. WILL CONTINUE TO MONITOR.
--- NOTE | 2018-09-18 12:16 | MORECARE ---
CASE MANAGEMENT DISCHARGE SUMMARY PATIENT: JAMMIE GREEN UNIT: [id number] ADM DATE: 09/11/18 AGE: 67 : 51 SEX: M ROOM/BED: D.2307 AUTHOR: SAMMIE,DOC PHYSICIAN: REFERRING PHYSICIAN: CATRACHO MERRITT DO DATE OF SERVICE: 09/18/18 Discharge Plan Patient Name: JAMMIE GREEN Facility: [facility]:[place] : 1950 Planned Disposition: Home Anticipated Discharge Date: Discharge Date: Expected LOS: Initial Reviewer: [email or web address] Initial Review Date: 09/11/2018 Generated: 09/18/18 1:16 pm Comments DCP- Discharge Planning Updated by [email or web address]: Becky Fontenot on 09/18/18 11:[address] CM called daughter and CEFERINO verbalized for [facility] out of [place] [phone]. Doctor Milton spoke with daughter this morning and he told her that he would see about getting patient transferred back to [facility] in accordance to a transfer back agreement. CM will contact transfer center to see if patient can transfer back although CM can't find a transfer back agreement. CM will continue to follow and assist as needed with discharge planning / needs. DCP- Discharge Planning Updated by [email or web address]: Becky Fontenot on 09/12/18 4:[address] Patient Name: JAMMIE GREEN Admission Status: ER Accout number: [id number] Admission Date: 09-11-2018 : 1950 Admission Diagnosis: Attending: CATRACHO MERRITT Current LOS: 1 Anticipated DC Date: Planned Disposition: Home Primary Insurance: MEDICARE A & B Discharge Planning Comments: CM met with daughter at bedside patient is currently intubated on vent. CM explained role and received verbal consent to evaluate. Patient lives with daughter Poornima. Poornima stated that the patient was in hospital in [place] 3 weeks ago for COPD. He was discharged with home and portable 02 with [facility]. They had set up patient with Home Health but patient refused once they came to admit. Poornima states that he will need home health when discharged from here. Poornima will get back with CM on what agency she wants to go with. CM will continue to follow and assist as needed with discharge planning / needs. Mainframe Architect: Becky Fontenot DCPIA - Discharge Planning Initial Assessment Updated by [email or web address]: Becky Fontenot on 09/12/18 4:58 pm * Is the patient Alert and Oriented? Yes * How many steps to enter\exit or inside your home? * PCP CORWIN BEAL * Pharmacy [facility] * Preadmission Environment Home with Family * ADLs Independent * Equipment Oxygen * Other Equipment HOME 02 & PORT 02, NE[facility]ULIZER - [facility] * List name and contact numbers for known caregivers / representatives who currently or will assist patient after discharge: POORNIMA ALONSO - DAUGHTER- [phone] * Verbal permission to speak to the caregivers and representatives has been obtained from the patient. N/A * Community resources currently utilized None * Additional services required to return to the preadmission environment? No * Can the patient safely return to the preadmission environment? Yes * Has this patient been hospitalized within the prior 30 days at any hospital? Yes Coverage Notice Reviewer: [email or web address] - Becky Fontenot Notice Issued Date-Time: 09/18/2018 11:50 Notice Type: Patient Choice Letter Notice Delivered To: Family Member Relationship to Patient: Daughter Manager Massage Department Name: Poornima Alonso Delivery Method: PHONE - Phone Nancy Days: Prior Verbal Notification: Recipient Understood Notice: Yes Recipient Signature: William Rec Note Co-signed by Attending: Coverage Notice Comment: Last DP export: 09/12/18 4:15 p Patient Name: JAMMIE GREEN Page [id number] at 1216 All edits/amendments must be made on the electronic document DICTATION DATE: 09/18/18 1215 CUSTOMER RESOLUTION SPECIALIST: CHRIS 09/18/18 1215 RPT#: [id number] DC DATE: STATUS: ADM IN [facility] [address] [place] [address] END OF REPORT
--- NOTE | 2018-09-18 13:20 | NUR ---
PATIENT WATCHING TV. PATIENT WAS TEMPORARILY ON BIPAP DUE TO SOB WHEN AMBULATING TO BED SIDE COMMODE. LINEN CHANGED. PT IN ROOM AMBULATING AT THIS TIME. WILL CONTINUE TO MONITOR.
--- NOTE | 2018-09-18 15:22 | NUR ---
PATIENT SLEEPING. PATIENT IS ON BIPAP MACHINE WITH SPO2 OF 96%. CHG AND LINEN CHANGE GIVEN. ORAL CARE PROVIDED. CALL LIGHT WITHIN REACH. VSS. WILL CONTINUE TO MONITOR.
--- NOTE | 2018-09-18 16:55 | NUR ---
patient woke up confused and disoriented to place, situation, and time. patient placed on bipap and restraints. CHG bath given at this time.
[2018-09-18 18:07] LABS: FUNGUS MYCOLOGY CULTURE Preliminary report (())
[2018-09-18 18:07] LABS: FUNGUS MYCOLOGY CULTURE Preliminary report (())
--- NOTE | 2018-09-18 19:00 | NUR ---
REPORT RECEIVED. RECEIVED PATIENT IN BED. AWAKE AND ALERT. ORIENTED X 4. SPEECH CLEAR AND APPROPRIATE. MONITORS CONNECTED TO PATIENT WITH ALARMS SET. VSS. SHIFT ASSESSMENT COMPLETED PER FLOW SHEET WITH NO ACUTE DISTRESS OBSERVED.
--- NOTE | 2018-09-18 21:00 | NUR ---
AWAKE AND ALERT ORIENTED X 3. SPEECH CLEAR AND APPROPRIATE. VSS. NO ACUTE DISTRESS OBSERVED. CALL LIGHT IN REACH AND ABLE TO UTILIZE TO MAKE NEEDS KNOWN
--- NOTE | 2018-09-18 23:00 | NUR ---
REASSESSEMENT COMPLETED PER FLOW SHEET WITH NO CHANGES OR ACUTE DISTRESS OBSERVED. VSS. CALL LIGHT IN REACH.
[2018-09-19] VITALS (25 sets, daily range): BP systolic 92–156; BP diastolic 54–109
--- NOTE | 2018-09-19 01:00 | NUR ---
PT REMOVED BIPAP MASK. INTO ROOM. PATIENT VERBALIZED DESIRE TO GET UP OUT OF BED AND INTO BEDSIDE CHAIR AND NEEDS A BREAK FROM THE MASK. ASSISTED INTO CHAIR WITHOUT DIFF. ALERT AND ORIENTED TO PERSON, PLACE AND DATE WITH SOME CONFUSION TO SITUATION. VSS.
--- NOTE | 2018-09-19 03:00 | NUR ---
RESTING WITH EYES CLOSED EASILY ROUSED AND ALERT. REASSESMENT COMPLETED PER FLOW SHEET WITH NO ACUTE DISTRESS OBSERVED. VSS
[2018-09-19 04:13] LABS: BASOPHILS 0.2 % (0-2); EOSINOPHILS 4.2 % (0-7); HEMATOCRIT 46.8 % (42.0-54.0); HEMOGLOBIN 15.7 g/dL (13.5-17.5); IMMATURE GRANULOCYTES 2.1 % (0-5); LYMPHOCYTES 9.8 % (15-50); MCH 29.9 pg (26.0-34.0); MCHC 33.5 g/dL (31.0-37.0); MCV 89.1 fL (80.0-100.0); MEAN PLATELET VOLUME 10.3 fL (7.4-10.4); NEUTROPHILS 75.7 % (40-80); PLATELET COUNT 237 10x3/uL (130-400); RBC 5.25 10x6/uL (4.20-6.10); RDW 15.1 % (11.5-14.5)
[2018-09-19 04:21] LABS: WBC 12.3 10x3/uL (4.8-10.8)
[2018-09-19 04:26] LABS: CALC OSMOLALITY 269 mosm/kg (275-300); CALCIUM 8.8 mg/dL (8.5-10.1); CARBON DIOXIDE 35.3 mmol/L (21.0-32.0); CHLORIDE - SERUM 95 mmol/L (98-107); CREATININE - SERUM 0.9 mg/dL (0.6-1.3); GLUCOSE 88 mg/dL (74-106); MAGNESIUM - SERUM 1.8 mg/dL (1.8-2.4); POTASSIUM - SERUM 3.7 mmol/L (3.5-5.1); SODIUM 134 mmol/L (136-145); UREA NITROGEN 21 mg/dL (7-18); eGFR NON AFRICAN AMERICAN 90 mL/min (90-120)
--- NOTE | 2018-09-19 04:30 | NUR ---
PT AWOKE CONFUSED. REMOVED BIPAP AND BROKE MASK. PT ALERT, CONFUSED TO PLACE/DATE/TIME AND SITUATION. SPEECH CLEAR. CALM COOPERATIVE AND ABLE TO FOLLOW COMMANDS.
--- NOTE | 2018-09-19 06:30 | NUR ---
PATIENT ATTEMPTING TO GET UP OUT OF BED ON OWN. BED ALARM SOUNDING. THIS RN INTO ROOM. PATIENT FOUND TO HAVE REMOVED IV AND ALL MONITORING EQUIPTMENT. CONTINUES CONFUSED TO PLACE/DATE/TIME/SITUATION. ASSISTED BACK TO BED, LINENS AND GOWN CHANGED. 20 GAUGE IV RESTARTED TO RFA X 1 ATTEMPT.
--- NOTE | 2018-09-19 07:50 | NUR ---
REPORT RECIEVED BY MO HINKLE. SHIFT ASSESMENT COMPLETED. PATIENT STABLE. PATIENT ON 10L HIGH FLOW NC. PATIENT IS ALERT AND ORIENTED. VSS. WILL CONTINUE TO MONITOR.
--- NOTE | 2018-09-19 09:00 | NUR ---
DR COHEN AT BEDSIDE. UPDATE GIVEN. WILL CONTINUE TO MONITOR.
--- NOTE | 2018-09-19 09:45 | NUR ---
DR OGDEN AT BEDSIDE. UPDATE GIVEN. PT NOW ON 4L NC SPO2 92%. WILL BEGIN BIPAP ACCORDING TO ABG.
--- NOTE | 2018-09-19 10:00 | NUR ---
PATIENT ON BIPAP AT 40%.
--- NOTE | 2018-09-19 12:45 | NUR ---
PATIENT IS SLEEPING. ALERT AND ORIENTED. VSS. BED LOW AND LOCKED. SCD'S BEING USED. WILL CONTINUE TO MONITOR.
--- NOTE | 2018-09-19 13:00 | NUR ---
PT RESTING. VSS. CALL LIGHT WITHIN REACH. WILL CONTINUE TO MONITOR.
--- NOTE | 2018-09-19 13:58 | NUR ---
SPEECH EVAL FOLLOW UP AT BEDSIDE. UPDATED GIVEN.
--- NOTE | 2018-09-19 15:01 | NUR ---
CHG BATH GIVEN, COMPLETE LINEN CHANGE, VSS, PATIENT ON 4 L NC SPO2 92%, ALERT AND ORIENTED, PATIENT IN CHAIR AT TIME, CALL LIGHT WITHIN REACH, CHAIR LOCKED, WILL CONTINUE TO MONITOR.
--- NOTE | 2018-09-19 17:15 | NUR ---
PT UP IN CHAIR, NO NEEDS NOTED, WILL CON'T TO MONITOR
--- NOTE | 2018-09-19 19:00 | NUR ---
PT AOX4, EXPERIENCES PERIODS OF DYSPNEA, 4L O2 VIA NC, SPO2 95. WHEEZES/DIMINISHED LUNG SOUNDS. CAFIB ON MONITOR, PERIPHERAL PULSES PRESENT. BOWEL SOUNDS PRESENT IN ALL QUADRANTS. PT REPOSITIONS SELF INDEPENDENTLY. DENIES PAIN AT THIS TIME. URINAL AT BEDSIDE. FRESH WATER PROVIDED. WARM BLANKET PROVIDED UPON REQUEST. DENIES FURTHER NEEDS AT THIS TIME. CALL LIGHT AND BEDSIDE TABLE WITHIN PT REACH. CPOC.
--- NOTE | 2018-09-19 20:30 | NUR ---
ASSISTED TO SIDE OF BED TO USE URINAL. DYSPNEA ON EXERTION. REPOSITIONED FOR COMFORT, HOB @ 40 DEGREES. DENIES PAIN AT THIS TIME. DENIES FURTHER NEEDS. CALL LIGHT WITHIN PT REACH. CPOC.
--- NOTE | 2018-09-19 22:00 | NUR ---
HS MEDS GIVEN. PT PLACED ON BIPAP AT 40%, REPOSITIONED FOR COMFORT, PARTIAL LINEN CHANGE PROVIDED. DENIES FURTHER NEEDS AT THIS TIME. CALL LIGHT WITHIN PT REACH. ROOM VISIBLE FROM NURSES STATION. CPOC.
--- NOTE | 2018-09-19 23:00 | NUR ---
REASSESSMENT COMPLETE, NO NEW CHANGES AT THIS TIME. PT AOX4, BIPAP IN PLACE, SPO2 95. REPOSITIONS SELF INDEPENDENTLY. DENIES PAIN AT THIS TIME. DENIES NEEDS. CALL LIGHT WITHIN PT REACH, ROOM VISIBLE FROM NURSES STATION. CPOC.
[2018-09-20] VITALS (7 sets, daily range): BP systolic 92–123; BP diastolic 72–95
--- NOTE | 2018-09-20 00:49 | NUR ---
TOOK PT OFF BIPAP FOR A BREAK. O2 DROPS TO LOW 80'S. PLACED PT ON HFNC AT 7L SATS 93-96%. WILL CONTINUE TO MONITOR AND PUT BACK ON BIPAP AFTER SMALL BREAK
--- NOTE | 2018-09-20 01:16 | NUR ---
PT BACK ON BIPAP 15/08, 40%
--- NOTE | 2018-09-20 01:20 | NUR ---
PT RESTING QUIETLY ON BIPAP AT 40%, SPO2 93. NO S/S OF PAIN. ROOM VISIBLE FROM NURSES STATION, CALL LIGHT WITHIN PT REACH. CPOC.
--- NOTE | 2018-09-20 03:04 | NUR ---
REASSESSMENT COMPLETE, NO NEW CHANGES AT THIS TIME. PT RESTING QUIETLY WITH BIPAP IN PLACE, SPO2 94%. REPOSITIONS SELF, HOB 40 DEGREES. VSS, DENIES PAIN. DENIES NEEDS. CALL LIGHT WITHIN PT REACH, ROOM VISIBLE FROM NURSES STATION. CPOC.
[2018-09-20 03:52] LABS: BASOPHILS 0.2 % (0-2); EOSINOPHILS 4.4 % (0-7); HEMATOCRIT 43.6 % (42.0-54.0); HEMOGLOBIN 14.6 g/dL (13.5-17.5); IMMATURE GRANULOCYTES 1.1 % (0-5); MCH 29.6 pg (26.0-34.0); MCHC 33.5 g/dL (31.0-37.0); MCV 88.4 fL (80.0-100.0); MEAN PLATELET VOLUME 10.1 fL (7.4-10.4); MONOCYTES 9.1 % (2-11); NEUTROPHILS 75.2 % (40-80); PLATELET COUNT 192 10x3/uL (130-400); RBC 4.93 10x6/uL (4.20-6.10); RDW 15.2 % (11.5-14.5); WBC 11.3 10x3/uL (4.8-10.8)
[2018-09-20 03:59] LABS: CALC OSMOLALITY 267 mosm/kg (275-300); CALCIUM 8.6 mg/dL (8.5-10.1); CARBON DIOXIDE 34.3 mmol/L (21.0-32.0); CHLORIDE - SERUM 95 mmol/L (98-107); CREATININE - SERUM 0.9 mg/dL (0.6-1.3); GLUCOSE 104 mg/dL (74-106); MAGNESIUM - SERUM 1.6 mg/dL (1.8-2.4); POTASSIUM - SERUM 3.7 mmol/L (3.5-5.1); SODIUM 133 mmol/L (136-145); UREA NITROGEN 18 mg/dL (7-18); eGFR NON AFRICAN AMERICAN 90 mL/min (90-120)
--- NOTE | 2018-09-20 05:24 | NUR ---
PT RESTING QUIETLY, BIPAP IN PLACE, SPO2 92. PT REPOSITIONS SELF INDEPENDENTLY. VSS, NO C/O PAIN. CALL LIGHT WITHIN PT REACH. ROOM VISIBLE FROM NURSES STATION. CPOC.
--- NOTE | 2018-09-20 07:30 | NUR ---
REPORT RECIEVED FROM SUZAN. PATIENT AWAKE, ALERT, ORIENTED. PATIENT ON 4 L NC WITH SPO2 OF 92%. VSS. SHIFT ASSESMENT COMPLETED. WILL CONTINUE TO MONITOR. CALL LIGHT WITHIN REACH. BED LOW AND LOCKED.
--- NOTE | 2018-09-20 08:43 | NUR ---
FAMILY IS AT BEDSIDE.
--- NOTE | 2018-09-20 09:00 | NUR ---
FAMILY AT BED SIDE. VSS. WILL CONTINUE TO MONITOR.
--- NOTE | 2018-09-20 09:34 | NUR ---
NUTRITION F/U CHART REVIEWED. PT VISIT, FAMILY AT BEDSIDE. BOTH PT AND FAMILY REPORT PT WITH GOOD INTAKE MECH SOFT BREAKFAST. WILL CONTINUE TO MONITOR DIET ADVANCEMENT, PO INTAKE. RD FOLLOWING
--- NOTE | 2018-09-20 11:00 | NUR ---
PATIENT SLEEPING. ON BIPAP. SPO2 92%. PATIENT STABLE. WILL CONTINUE TO MONITOR.
--- NOTE | 2018-09-20 12:43 | NUR ---
DR. OGDEN AT BEDSIDE. UPDATE GIVEN.
--- NOTE | 2018-09-20 16:51 | NUR ---
PATIENT RECEIVED ON FLOOR BY THIS NURSE. PATIENT IS ALERT/ORIENT X4. TELEMTRY IN PLACE. OXYGEN ON AT 4L. THIS NURSE AGRESS WITH ICU NURSE ASST
--- NOTE | 2018-09-20 17:05 | NUR ---
patient report given. patient transported to room 1203
--- NOTE | 2018-09-20 18:33 | NUR ---
I have reviewed this patient and I concur with the Shift Assessment completed by the Licensed Practical Nurse today this shift.
--- NOTE | 2018-09-20 19:44 | NUR ---
RESUMING PATIENT CARE. PATIENT IS ALERT AND ORIENTED, SITTING ON EDGE OF BED. RESPIRATIONS ARE EVEN AND UNLABORED. NO S/S OF DISTRESS. NO C/O PAIN. NEEDS MET. CALL LIGHT WITHIN REACH. WILL CPOC.
[2018-09-21] VITALS (7 sets, daily range): BP systolic 80–137; BP diastolic 52–86
[2018-09-21 05:34] LABS: CALC OSMOLALITY 273 mosm/kg (275-300); CALCIUM 8.5 mg/dL (8.5-10.1); CARBON DIOXIDE 35.5 mmol/L (21.0-32.0); CHLORIDE - SERUM 96 mmol/L (98-107); CREATININE - SERUM 0.9 mg/dL (0.6-1.3); GLUCOSE 86 mg/dL (74-106); MAGNESIUM - SERUM 1.7 mg/dL (1.8-2.4); POTASSIUM - SERUM 3.7 mmol/L (3.5-5.1); SODIUM 136 mmol/L (136-145); UREA NITROGEN 20 mg/dL (7-18); eGFR NON AFRICAN AMERICAN 90 mL/min (90-120)
[2018-09-21 05:39] LABS: BASOPHILS 0.2 % (0-2); EOSINOPHILS 5.4 % (0-7); HEMATOCRIT 42.7 % (42.0-54.0); HEMOGLOBIN 14.2 g/dL (13.5-17.5); IMMATURE GRANULOCYTES 1.1 % (0-5); LYMPHOCYTES 9.8 % (15-50); MCH 29.6 pg (26.0-34.0); MCHC 33.3 g/dL (31.0-37.0); MEAN PLATELET VOLUME 10.4 fL (7.4-10.4); MONOCYTES 8.8 % (2-11); NEUTROPHILS 74.7 % (40-80); PLATELET COUNT 222 10x3/uL (130-400); RDW 15.3 % (11.5-14.5); WBC 9.8 10x3/uL (4.8-10.8)
--- NOTE | 2018-09-21 07:15 | NUR ---
RECEIVED PT SITTING IN CHAIR AAOX4 RESP UNLABORED SKIN W/D O2 ON 5LPM HIGH FLOW CANNULA DENIES ANY NEEDS OR PAIN AT THIS TIME NAD NOTED
--- NOTE | 2018-09-21 11:34 | NUR ---
FSBS 130
--- NOTE | 2018-09-21 11:35 | NUR ---
FSBS 130 NO COVERAGE REQUIRED
--- NOTE | 2018-09-21 17:03 | NUR ---
FSBS 113
--- NOTE | 2018-09-21 19:48 | NUR ---
RESUMING PATIENT CARE. PATIENT SITTING ON SIDE OF BED. RESPIRATIONS ARE EVEN AND UNLABORED. PATIENT REMAINS ON A HIGH FLOW NC SET AT 5L. NO S/SO OF DISTRESS. NO C/O PAIN. CALL LIGHT WITHIN REACH. NEEDS MET. CALL LIGHT WITHIN REACH. WILL CPOC.
[2018-09-22 04:54] VITALS: BP 117/74
[2018-09-22 06:52] LABS: BASOPHILS 0.4 % (0-2); HEMATOCRIT 47.3 % (42.0-54.0); IMMATURE GRANULOCYTES 1.1 % (0-5); LYMPHOCYTES 9.9 % (15-50); MCH 30.1 pg (26.0-34.0); MCHC 33.8 g/dL (31.0-37.0); MCV 88.9 fL (80.0-100.0); MEAN PLATELET VOLUME 10.5 fL (7.4-10.4); MONOCYTES 8.4 % (2-11); NEUTROPHILS 75.2 % (40-80); RBC 5.32 10x6/uL (4.20-6.10); RDW 15.3 % (11.5-14.5); WBC 10.5 10x3/uL (4.8-10.8)
[2018-09-22 06:58] LABS: PLATELET COUNT 281 10x3/uL (130-400)
[2018-09-22 07:09] LABS: ANION GAP 8.8 mmol/L (8-16); CALCIUM 9.2 mg/dL (8.5-10.1); CARBON DIOXIDE 35.5 mmol/L (21.0-32.0)
[2018-09-22 07:10] LABS: CREATININE - SERUM 1.2 mg/dL (0.6-1.3)
[2018-09-22 07:11] LABS: POTASSIUM - SERUM 4.3 mmol/L (3.5-5.1)
--- NOTE | 2018-09-22 07:20 | NUR ---
RECEIVED PT IN BED SITTING ON SIDE AAOX4 RESP UNLABORED O2 ON 5 LPM HIGH FLOW NC SKIN W/D COLOR WNL DENIES ANY NEEDS OR DISCOMFORT AT THIS TIME NAD NOTED
[2018-09-22 08:54] VITALS: BP 115/69
--- NOTE | 2018-09-22 11:36 | NUR ---
FSBS 130
[2018-09-22 12:12] VITALS: BP 147/98
--- NOTE | 2018-09-22 15:56 | MORECARE ---
CASE MANAGEMENT DISCHARGE SUMMARY PATIENT: JAMMIE GREEN UNIT: [id number] ADM DATE: 09/11/18 AGE: 67 : 51 SEX: M ROOM/BED: D.0486 AUTHOR: SAMMIE,DOC PHYSICIAN: REFERRING PHYSICIAN: CATRACHO MERRITT DO DATE OF SERVICE: 09/22/18 Discharge Plan Patient Name: JAMMIE GREEN Facility: [facility]:[place] : 1950 Planned Disposition: Group Home Facility Anticipated Discharge Date: 09/25/18 Discharge Date: Expected LOS: 14 Initial Reviewer: [email or web address] Initial Review Date: 09/11/2018 Generated: 09/22/18 4:56 pm DCP- Discharge Planning Updated by [email or web address]: Becky Fontenot on 09/18/18 11:[address] CM called daughter and CEFERINO verbalized for [facility] out of [place] [phone]. Doctor Milton spoke with daughter this morning and he told her that he would see about getting patient transferred back to [facility] in accordance to a transfer back agreement. CM will contact transfer center to see if patient can transfer back although CM can't find a transfer back agreement. CM will continue to follow and assist as needed with discharge planning / needs. DCP- Discharge Planning Updated by [id number]: Becky Fontenot on 09/12/18 4:[address] Patient Name: JAMMIE GREEN Admission Status: ER Accout number: [id number] Admission Date: 09-11-2018 : 1950 Admission Diagnosis: Attending: CATRACHO MERRITT Current LOS: 1 Anticipated DC Date: Planned Disposition: Home Primary Insurance: MEDICARE A & B Discharge Planning Comments: CM met with daughter at bedside patient is currently intubated on vent. CM explained role and received verbal consent to evaluate. Patient lives with daughter Poornima. Poornima stated that the patient was in hospital in [place] 3 weeks ago for COPD. He was discharged with home and portable 02 with [facility]. They had set up patient with Home Health but patient refused once they came to admit. Poornima states that he will need home health when discharged from here. Poornima will get back with CM on what agency she wants to go with. CM will continue to follow and assist as needed with discharge planning / needs. Biology Professor: Becky Fontenot DCPIA - Discharge Planning Initial Assessment Updated by [email or web address]: Becky Fontenot on 09/12/18 4:58 pm * Is the patient Alert and Oriented? Yes * How many steps to enter\exit or inside your home? * [facility] * Pharmacy [facility] * Preadmission Environment Home with Family * ADLs Independent * Equipment Oxygen * Other Equipment HOME 02 & PORT 02, NEBULIZER - [facility] * List name and contact numbers for known caregivers / representatives who currently or will assist patient after discharge: POORNIMA ALONSO - DAUGHTER- [phone] * Verbal permission to speak to the caregivers and representatives has been obtained from the patient. N/A * Community resources currently utilized None * Additional services required to return to the preadmission environment? No * Can the patient safely return to the preadmission environment? Yes * Has this patient been hospitalized within the prior 30 days at any hospital? Yes External Providers External Provider: [facility] Next Contact Date: 09/22/2018 Service Request Date: Service Type: Resolution: Reviewer: Comments: Coverage Notice Reviewer: [id number] - Becky Fontenot Notice Issued Date-Time: 09/18/2018 11:50 Notice Type: Patient Choice Letter Notice Delivered To: Family Member Relationship to Patient: Daughter Fitter Tacker Name: Poornima Alonso Delivery Method: PHONE - Phone Nancy Days: Prior Verbal Notification: Recipient Understood Notice: Yes Recipient Signature: Med Rec Note Co-signed by Attending: Coverage Notice Comment: Last DP export: 09/18/18 11:16 a Patient Name: JAMMIE GREEN Page [id number] at 1556 All edits/amendments must be made on the electronic document DICTATION DATE: 09/22/181555 COMMERCIAL ATTORNEY: CHRIS 09/22/181555 RPT#: [id number] DC DATE: STATUS: ADM IN [facility] [address] [place] [address] END OF REPORT
[2018-09-22 16:15] VITALS: BP 134/89
--- NOTE | 2018-09-22 16:27 | MORECARE ---
CASE MANAGEMENT DISCHARGE SUMMARY PATIENT: JAMMIE GREEN UNIT: [id number] ADM DATE: 09/11/18 AGE: 67 : 51 SEX: M ROOM/BED: D.2116 AUTHOR: SAMMIE,DOC PHYSICIAN: REFERRING PHYSICIAN: CATRCAHO MERRITT DO DATE OF SERVICE: 09/22/18 Discharge Plan Patient Name: JAMMIE GREEN Facility: [facility]:[place] : 1950 Planned Disposition: Custodial Facility Anticipated Discharge Date: 09/25/18 Discharge Date: Expected LOS: 14 Initial Reviewer: [email or web address] Initial Review Date: 09/11/2018 Generated: 09/22/18 5:26 pm Comments DCP- Discharge Planning Updated by [email or web address]: Larry Estes on 09/22/18 3:[address] Patient Name: JAMMIE GREEN Encounter No: [id number] : 1950 Primary Insurance: MEDICARE A & B Anticipated DC Date: 09-25-2018 Planned Disposition: Custodial Facility External Planned Provider: [facility] DCP follow-up note: CM RECEIVED ORDER FOR REHAB CLOSE TO PT'S HOME, MET WITH PT IN ROOM, DISCUSSED REHAB OPTIONS, PROVIDED [facility] FACILITY LISTING. PT SIGNED CHOICE FOR [facility], [facility] AND [facility]. IMPORTANT MESSAGE FROM MEDICARE PROVIDED AND EXPLAINED. CM CALLED MORAIMA AT [facility], , THEY CAN SERVICE 5 LITERS OXYGEN, WILL REVIEW REHAB REFERRAL. CM FAXED REFERRAL TO [facility] AT [phone]. CM WAITING ADMISSION DETERMINATION FROM [facility] FOR [facility]. Larry Estes, CASE VINCENT DCP- Discharge Planning Updated by [id number]: Becky Fontenot on 09/18/18 11:[address] CM called daughter and CEFERINO verbalized for [facility] out of [place] [phone]. Doctor Milton spoke with daughter this morning and he told her that he would see about getting patient transferred back to [facility] in accordance to a transfer back agreement. CM will contact transfer center to see if patient can transfer back although CM can't find a transfer back agreement. CM will continue to follow and assist as needed with discharge planning / needs. DCP- Discharge Planning Updated by [id number]: Becky Fontenot on 09/12/18 4:[address] Patient Name: JAMMIE GREEN Admission Status: ER Accout number: [id number] Admission Date: 09-11-2018 : 1950 Admission Diagnosis: Attending: CATRACHO MERRITT Current LOS: 1 Anticipated DC Date: Planned Disposition: Home Primary Insurance: MEDICARE A & B Discharge Planning Comments: CM met with daughter at bedside patient is currently intubated on vent. CM explained role and received verbal consent to evaluate. Patient lives with daughter Poornima. Poornima stated that the patient was in hospital in [place] 3 weeks ago for COPD. He was discharged with home and portable 02 with [facility]. They had set up patient with Home Health but patient refused once they came to admit. Poornima states that he will need home health when discharged from here. Poornima will get back with CM on what agency she wants to go with. CM will continue to follow and assist as needed with discharge planning / needs. Counter Intelligence Technician: Becky Fontenot DCPIA - Discharge Planning Initial Assessment Updated by [id number]: Becky Fontenot on 09/12/18 4:58 pm * Is the patient Alert and Oriented? Yes * How many steps to enter\exit or inside your home? * [facility] * Pharmacy [facility] * Preadmission Environment Home with Family * ADLs Independent * Equipment Oxygen * Other Equipment HOME 02 & PORT 02, NEBULIZER - [facility] * List name and contact numbers for known caregivers / representatives who currently or will assist patient after discharge: POORNIMA ALONSO - DAUGHTER- [phone] * Verbal permission to speak to the caregivers and representatives has been obtained from the patient. N/A * Community resources currently utilized None * Additional services required to return to the preadmission environment? No * Can the patient safely return to the preadmission environment? Yes * Has this patient been hospitalized within the prior 30 days at any hospital? Yes Coverage Notice Reviewer: [id number] - Becky Fontenot Notice Issued Date-Time: 09/18/2018 11:50 Notice Type: Patient Choice Letter Notice Delivered To: Family Member Relationship to Patient: Daughter Inspector Electromechanical Name: Poornima Alonso Delivery Method: PHONE - Phone Nancy Days: Prior Verbal Notification: Recipient Understood Notice: Yes Recipient Signature: Med Rec Note Co-signed by Attending: Coverage Notice Comment: Reviewer: MINNIE Estes Notice Issued Date-Time: 09/22/2018 14:55 Notice Type: IM Discharge Notice Notice Delivered To: Patient Relationship to Patient: Inspector Electromechanical Name: Delivery Method: HAND - Hand Delivered Nancy Days: Prior Verbal Notification: Recipient Understood Notice: Yes Recipient Signature: Yes Med Rec Note Co-signed by Attending: Coverage Notice Comment: Reviewer: MINNIE Estes Notice Issued Date-Time: 09/22/2018 14:55 Notice Type: Patient Choice Letter Notice Delivered To: Patient Relationship to Patient: Inspector Electromechanical Name: Delivery Method: HAND - Hand Delivered Nancy Days: Prior Verbal Notification: Recipient Understood Notice: Yes Recipient Signature: Yes Med Rec Note Co-signed by Attending: Coverage Notice Comment: [facility] Last DP export: 09/22/18 2:56 p Patient Name: JAMMIE GREEN Page [id number] at 1627 All edits/amendments must be made on the electronic document DICTATION DATE: 09/22/181625 ENTRY LEVEL LAB TECHNICIAN: CHRIS 09/22/181625 RPT#: [id number] DC DATE: STATUS: ADM IN [facility] [address] [place] [address] END OF REPORT
--- NOTE | 2018-09-22 20:00 | NUR ---
INITIAL ROUNDS AND ASSESSMENT COMPLETED. PT JUST FINISHED SPONGING HIMSELF OFF AND IS VERY SOB. O2 SAT 85%. HIGH FLOW O2 @ 5L IN PLACE AND PATIENT RESTS, HIS O2 SAT IS SLOWLY INCREASING. PT ALSO HAS BIPAP AT BEDSIDE, BUT ONLY USES IT HE WANTS, WHICH SEEMS TO BE AN ISSUE FOR HIM THAT HE FEELS THE DOCTORS JUST WANT HIM TO PUT IT ON AND NEVER TAKE IT OFF. PT'S COPING MECHANISMS WITH HIS DISEASE PROCESS ARE POOR AND HE IS EASILY FRUSTRATED. SPOKE WITH PATIENT ABOUT THE BENEFITS OF USING THE BIPAP FOR REST PERIODS. WILL MONITOR AND PROVIDE A SAFE ENVIRONMENT.
[2018-09-22 20:21] VITALS: BP 166/101
--- NOTE | 2018-09-22 22:45 | NUR ---
PT RESTING IN BED, WATCHING TV. MORE RELAXED. BED TIME MEDS GIVEN. STILL NOT WANTING TO PUT ON BIPAP AT THIS TIME. CALL LIGHT IN REACH.
[2018-09-23 00:09] VITALS: BP 159/113
--- NOTE | 2018-09-23 00:40 | NUR ---
PT HAS BECOME INCREASINGLY PARANOID THE NIGHT HAS PROGRESSED. HE WILL NOT ALLOW HIS DOOR TO BE CLOSED OR HIS LIGHTS TO BE DIMMED. HE IS ACCUSING STAFF OF "BOTHERING ME". HE SAYS HE MUST STAY AWAKE TO MAKE SURE THE STAFF DO NOT ATTEMPT TO DO ANYTHING TO HIM. PATIENT WILL SPEAK WITH THE NURSE AND ALLOW THIS NURSE TO PROVIDE HIM CARE, BUT ALSO TELLS THIS NURSE TO KEEP "THE OTHERS" AWAY FROM HIM. HE IS REFUSING BIPAP, BUT HIS HIGHFLOW O2 IS IN PLACE AND PER HIS OWN PULSE OXIMETER HIS O2 SAT IS 91%. ENCOURAGED PT TO TRY AND REST AND HE STATES HE MUST STAY AWAKE TO WATCH FOR PEOPLE TRYING TO COME INTO HIS ROOM. MONITOR AND CPOC.
--- NOTE | 2018-09-23 01:57 | NUR ---
PT CONTINUES TO BE VERY ANXIOUS AND PARANOID. HE THINKS EVERY STAFF MEMBER THAT WALKS PAST HIS ROOM IN THE HALLWAY IS WATCHING HIM. HE THINKS THE RESPIRATORY THERAPIST "SCANNED HIS ROOM" AND IS SPYING ON HIM. HE KEEPS TELLING NURSE THAT HE IS NOT GOING TO END UP IN "TIED UP". MUCH TIME SPENT CALMING PATIENT AND TELLING HIM HE IS IN A SAFE ENVIRONMENT.
--- NOTE | 2018-09-23 04:57 | NUR ---
PT TOLD NURSE THAT HE DID NOT WANT TO BE BOTHERED. THAT HE TRUSTED THIS NURSE TO KEEP HIM SAFE. HE IS NOW RESTING IN BED WITH EYES CLOSED. NO LABS DRAWN AND NO WEIGHTS DONE DUE TO PATIENTS PARANOIA.
--- NOTE | 2018-09-23 06:05 | NUR ---
PT AWAKENED AFTER SLEEPING FOR 3 HOURS AND IS MUCH MORE APPROPRIATE THAN BEFORE HE WENT TO SLEEP. HE IS NO LONGER ACTING PARANOID. TELLING NURSE THAT HE WOKE UP "IN A WHOLE NEW WORLD". WILL MONITOR.
--- NOTE | 2018-09-23 07:30 | NUR ---
02 SATS 79% ON 02 5L. 02 SAT 88% ON 02 9L. WILL MONITOR.
[2018-09-23 08:02] VITALS: BP 119/79
[2018-09-23 08:07] LABS: BASOPHILS 0.5 % (0-2); EOSINOPHILS 4.5 % (0-7); HEMATOCRIT 46.6 % (42.0-54.0); HEMOGLOBIN 15.7 g/dL (13.5-17.5); IMMATURE GRANULOCYTES 0.9 % (0-5); MCH 29.7 pg (26.0-34.0); MCHC 33.7 g/dL (31.0-37.0); MCV 88.1 fL (80.0-100.0); MEAN PLATELET VOLUME 9.6 fL (7.4-10.4); MONOCYTES 10.8 % (2-11); NEUTROPHILS 69.3 % (40-80); PLATELET COUNT 234 10x3/uL (130-400); RBC 5.29 10x6/uL (4.20-6.10); RDW 15.1 % (11.5-14.5); WBC 8.5 10x3/uL (4.8-10.8)
[2018-09-23 08:16] LABS: CALC OSMOLALITY 267 mosm/kg (275-300); CALCIUM 9.1 mg/dL (8.5-10.1); CARBON DIOXIDE 36.4 mmol/L (21.0-32.0); CHLORIDE - SERUM 92 mmol/L (98-107); GLUCOSE 115 mg/dL (74-106); POTASSIUM - SERUM 3.9 mmol/L (3.5-5.1); SODIUM 132 mmol/L (136-145); UREA NITROGEN 17 mg/dL (7-18); eGFR NON AFRICAN AMERICAN 79 mL/min (90-120)
[2018-09-23 11:49] VITALS: BP 105/67
--- NOTE | 2018-09-23 12:08 | NUR ---
02 SATS 89% ON 6L. WILL CONT. PLAN OF CARE.
--- NOTE | 2018-09-23 13:56 | NUR ---
UP TO CHAIR WITH CALL LIGHT IN REACH. UD CONT. PER RT. WILL CONT. PLAN OF CARE.
[2018-09-23 16:27] VITALS: BP 96/68
--- NOTE | 2018-09-23 20:00 | NUR ---
INITIAL ROUNDS AND ASSESSMENT COMPLETED. PT SITTING ON SIDE OF BED. ALERT/ORIENTED. BEGINNING TO TALK ABOUT THINGS IN A PARANOID MANNER. THINKS THAT THE NURSES/STAFF WALKING BY HIS DOOR ARE KEEPING "TABS" ON HIM. PT DOES HAVE A GOOD RAPPORT WITH TESSIE RESPIRATORY THERAPIST AND SHE IS VERY AWARE OF HIS NIGHTTIME CONFUSION/PARANOIA FROM WHEN HE WAS IN THE ICU. A LOT OF PATIENTS FEAR COMES FROM BEING INTUBATED AND RESTRAINED WHILE IN ICU AND HE KEEPS RECALLING THAT TIME VIVIDLY, ESPECIALLY AT NIGHT. FSBS 142 AT THIS TIME. PROVIDED PT WITH WATER AND A SNACK AT HIS REQUEST. MONITOR AND CPOC.
[2018-09-23 20:35] VITALS: BP 105/72
[2018-09-23 23:44] VITALS: BP 96/58
--- NOTE | 2018-09-24 01:27 | NUR ---
PT CONFUSED. ALLOWED RT TO PLACE HIM ON BIPAP FOR A SHORT WHILE, THEN HE BROKE APART THE BIPAP MASK AND ALSO WOULD NOT PUT ON HIS HIGH FLOW N/C. RT TO THE ROOM, NEW MASK STARTED. PT REFERRING TO THINGS HE IS SEEING OUTSIDE OF HIS ROOM AND, IN HIS CONFUSION, HE IS VERY PARANOID. MONITOR, PROVIDE A SAFE ENVIRONMENT.
--- NOTE | 2018-09-24 02:54 | NUR ---
PT TOOK OFF BIPAP AND REFUSES TO PUT IT BACK ON. SATS 91% HR 92 ON 6L HFNC
[2018-09-24 03:55] VITALS: BP 98/62
[2018-09-24 03:55] LABS: BASOPHILS 0.5 % (0-2); EOSINOPHILS 3.7 % (0-7); HEMATOCRIT 46.2 % (42.0-54.0); HEMOGLOBIN 15.2 g/dL (13.5-17.5); LYMPHOCYTES 16.5 % (15-50); MCH 29.6 pg (26.0-34.0); MCHC 32.9 g/dL (31.0-37.0); MCV 89.9 fL (80.0-100.0); MONOCYTES 9.7 % (2-11); NEUTROPHILS 68.6 % (40-80); PLATELET COUNT 244 10x3/uL (130-400); RBC 5.14 10x6/uL (4.20-6.10); RDW 15.3 % (11.5-14.5); WBC 9.2 10x3/uL (4.8-10.8)
[2018-09-24 04:00] LABS: ANION GAP 7.9 mmol/L (8-16); CALCIUM 9.1 mg/dL (8.5-10.1); CARBON DIOXIDE 35.5 mmol/L (21.0-32.0); CREATININE - SERUM 1.1 mg/dL (0.6-1.3); POTASSIUM - SERUM 4.4 mmol/L (3.5-5.1)
[2018-09-24 08:02] VITALS: BP 140/74
--- NOTE | 2018-09-24 09:57 | NUR ---
IV SL DCD. IV MEDS CHANGED TO ORAL. TELEMETRY CAF. RESP UN ON 02 6L JUJU FLOW. WILL CONT. PLAN OF CARE.
[2018-09-24 11:50] VITALS: BP 156/69
[2018-09-24 16:03] VITALS: BP 106/70
[2018-09-24 19:10] VITALS: BP 88/67
--- NOTE | 2018-09-24 19:46 | NUR ---
INITIAL ROUNDS AND ASSESSMENT COMPLETED. PT RESTING IN BED. NO DISTRESS. MONITOR AND CPOC.
--- NOTE | 2018-09-24 21:11 | NUR ---
WEARING HIGH FLOW O2, SITTING ON SIDE OF BED. HELD LASIX DUE TO LOW BP. MONITOR AND CPOC.
--- NOTE | 2018-09-24 22:11 | NUR ---
ORTHOSTATIC BPS LYIN/64 HR 63 SITTIN/64 HR 77 STANDIN/67 HR 79
--- NOTE | 2018-09-24 22:31 | NUR ---
PT REFUSES TO WEAR BIPAP MASK. SATS 88% 0N 8L HFNC
[2018-09-24 23:55] VITALS: BP 118/79
--- NOTE | 2018-09-25 04:22 | NUR ---
SITTING ON SIDE OF BED. HAS REFUSED BIPAP. PARANOID. ALL ACTIVITY IN HALLWAY HE RELATES TO SOMEONE COMING TO DO SOMETHING TO HIM OR TO SPY ON HIM. TELLS NURSE AND RT THAT HE NEEDS TO BE INFORMED SO THAT HE CAN "DO THE JOB" HE IS HERE TO DO. HE IS VERY CONFUSED. ENCOURAGEMENT TO LAY DOWN AND NAP ARE MET WITH RESISTANCE BECAUSE HE FEELS SOME ONE WILL DO SOMETHING TO HIM WHILE HE HAS HIS EYES CLOSED. HE IS KEEPING HIS HIGH FLOW O2 IN PLACE. MONITOR AND CPOC.
[2018-09-25 04:52] LABS: BASOPHILS 0.8 % (0-2); EOSINOPHILS 4.9 % (0-7); HEMATOCRIT 44.8 % (42.0-54.0); HEMOGLOBIN 14.9 g/dL (13.5-17.5); IMMATURE GRANULOCYTES 1.1 % (0-5); LYMPHOCYTES 19.4 % (15-50); MCH 29.6 pg (26.0-34.0); MCHC 33.3 g/dL (31.0-37.0); MCV 88.9 fL (80.0-100.0); MEAN PLATELET VOLUME 9.4 fL (7.4-10.4); MONOCYTES 11.3 % (2-11); NEUTROPHILS 62.5 % (40-80); PLATELET COUNT 221 10x3/uL (130-400); RBC 5.04 10x6/uL (4.20-6.10); WBC 8.6 10x3/uL (4.8-10.8)
[2018-09-25 05:17] LABS: CALC OSMOLALITY 260 mosm/kg (275-300); CALCIUM 9.2 mg/dL (8.5-10.1); CARBON DIOXIDE 34.3 mmol/L (21.0-32.0); CHLORIDE - SERUM 92 mmol/L (98-107); GLUCOSE 100 mg/dL (74-106); POTASSIUM - SERUM 4.5 mmol/L (3.5-5.1); SODIUM 129 mmol/L (136-145); UREA NITROGEN 19 mg/dL (7-18); eGFR NON AFRICAN AMERICAN 79 mL/min (90-120)
--- NOTE | 2018-09-25 07:15 | NUR ---
RECEIVED PT STANDING AT THE DOOR TELLING ME HE WAS GOING HOME I TOLD PT THAT CASE MANAGEMENT WAS TRYING TO FIND REHAB PLACEMENT FOR HIM PT ACKNOWLEDGED PT STATES I AM LEAVING TODAY FOR REHAB OR HOME ONE PT IS AGGITATED
[2018-09-25 08:05] VITALS: BP 109/60
--- NOTE | 2018-09-25 09:35 | MORECARE ---
CASE MANAGEMENT DISCHARGE SUMMARY PATIENT: JAMMIE GREEN UNIT: [id number] ADM DATE: 09/11/18 AGE: 67 : 51 SEX: M ROOM/BED: D.2116 AUTHOR: SAMMIE,DOC PHYSICIAN: REFERRING PHYSICIAN: CATRACHO MERRITT DO DATE OF SERVICE: 09/25/18 Discharge Plan Patient Name: JAMMIE GREEN Facility: [facility]:[place] : 1950 Planned Disposition: Custodial Facility Anticipated Discharge Date: 09/25/18 Discharge Date: Expected LOS: 14 Initial Reviewer: [email or web address] Initial Review Date: 09/11/2018 Generated: 09/25/18 10:35 am Comments DCP- Discharge Planning Updated by [email or web address]: Larry Estes on 09/25/18 8:[address] Patient Name: JAMMIE GREEN Encounter No: [id number] : 1950 Primary Insurance: MEDICARE A & B Anticipated DC Date: 09-25-2018 Planned Disposition: Custodial Facility External Planned Provider:[facility], MEDICARE REHAB BED DCP follow-up note: CM SPOKE TO PT IN ROOM, PT IN AGREEMENT WITH DISCHARGE TO REHAB AT [facility]. CM ENCOURAGED PT TO WEAR BIPAP, PT STATES HE HAS BEEN WEARING IT BUT REFUSED WHEN THE BIG STORM CAME THROUGH STATING HE WAS NOT GOING TO RISK ELECTROCUTION FROM LIGHTENING. CM ENCOURAGED PT TO PARTICIPATE WITH EACH THERAPY SESSION. PT DENIES HE REFUSED ANYTHING AND STATES THE GIRL THAT WAS HERE LAST NIGHT TOLD THE THERAPIST TO SAY THAT. PT STATES HE WILL PARTICIPATE WITH THERAPY HE DOES WANT TO GO TO [facility]. CM FAXED REFERRAL TO [facility] AT [phone]. CM WAITING ADMISSION DETERMINATION FROM [facility] FOR SNF REHAB SERVICES. Larry Estes CASE VINCENT DCP- Discharge Planning Updated by [id number]: Larry Estes on 09/22/18 3:[address] Patient Name: JAMMIE GREEN Encounter No: [id number] : 1950 Primary Insurance: MEDICARE A & B Anticipated DC Date: 09-25-2018 Planned Disposition: Custodial Facility External Planned Provider: [facility], MEDICARE REHAB BED DCP follow-up note: CM RECEIVED ORDER FOR REHAB CLOSE TO PT'S HOME, MET WITH PT IN ROOM, DISCUSSED REHAB OPTIONS, PROVIDED SNF FACILITY LISTING. PT SIGNED CHOICE FOR [facility] AND [facility]. IMPORTANT MESSAGE FROM MEDICARE PROVIDED AND EXPLAINED. CM CALLED MORAIMA AT [facility], , THEY CAN SERVICE 5 LITERS OXYGEN, WILL REVIEW REHAB REFERRAL. CM FAXED REFERRAL TO [facility] AT [phone]. CM WAITING ADMISSION DETERMINATION FROM [facility] FOR SNF REHAB SERVICES. Larry Estes, CASE MANAGEMENT DCP- Discharge Planning Updated by [id number]: Becky Fontenot on 09/18/18 11:[address] CM called daughter and CEFERINO verbalized for [facility] out of [place] [phone]. Doctor Milton spoke with daughter this morning and he told her that he would see about getting patient transferred back to [facility] in accordance to a transfer back agreement. CM will contact transfer center to see if patient can transfer back although CM can't find a transfer back agreement. CM will continue to follow and assist as needed with discharge planning / needs. DCP- Discharge Planning Updated by [email or web address]: Becky Fontenot on 09/12/18 4:[address] Patient Name: JAMMIE GREEN Admission Status: ER Accout number: [id number] Admission Date: 09-11-2018 : 1950 Admission Diagnosis: Attending: CATRACHO MERRITT Current LOS: 1 Anticipated DC Date: Planned Disposition: Home Primary Insurance: MEDICARE A & B Discharge Planning Comments: CM met with daughter at bedside patient is currently intubated on vent. CM explained role and received verbal consent to evaluate. Patient lives with daughter Abiola. Abiola stated that the patient was in hospital in [place] 3 weeks ago for COPD. He was discharged with home and portable 02 with [facility]. They had set up patient with Home Health but patient refused once they came to admit. Abiola states that he will need home health when discharged from here. Abiola will get back with CM on what agency she wants to go with. CM will continue to follow and assist as needed with discharge planning / needs. Collection Correspondent: Becky Fontenot DCPIA - Discharge Planning Initial Assessment Updated by [id number]: Becky Fontenot on 09/12/18 4:58 pm * Is the patient Alert and Oriented? Yes * How many steps to enter\exit or inside your home? * PCP CORWIN BEAL * Pharmacy [facility] * Preadmission Environment Home with Family * ADLs Independent * Equipment Oxygen * Other Equipment HOME 02 & PORT 02, NEBULIZER - [facility] * List name and contact numbers for known caregivers / representatives who currently or will assist patient after discharge: ABIOLA ALONSO - DAUGHTER- [phone] * Verbal permission to speak to the caregivers and representatives has been obtained from the patient. N/A * Community resources currently utilized None * Additional services required to return to the preadmission environment? No * Can the patient safely return to the preadmission environment? Yes * Has this patient been hospitalized within the prior 30 days at any hospital? Yes Coverage Notice Reviewer: [id number] Sharla VelascoBeckytonio Acharyar Notice Issued Date-Time: 09/18/2018 11:50 Notice Type: Patient Choice Letter Notice Delivered To: Family Member Relationship to Patient: Daughter Manager Ui Name: Abiola Alonso Delivery Method: PHONE - Phone Nancy Days: Prior Verbal Notification: Recipient Understood Notice: Yes Recipient Signature: Med Rec Note Co-signed by Attending: Coverage Notice Comment: Reviewer: [email or web address] Estes Notice Issued Date-Time: 09/22/2018 14:55 Notice Type: IM Discharge Notice Notice Delivered To: Patient Relationship to Patient: Manager Ui Name: Delivery Method: HAND - Hand Delivered Nancy Days: Prior Verbal Notification: Recipient Understood Notice: Yes Recipient Signature: Yes Med Rec Note Co-signed by Attending: Coverage Notice Comment: Reviewer: [id number] Sharla Estes Notice Issued Date-Time: 09/22/2018 14:55 Notice Type: Patient Choice Letter Notice Delivered To: Patient Relationship to Patient: Manager Ui Name: Delivery Method: HAND - Hand Delivered Nancy Days: Prior Verbal Notification: Recipient Understood Notice: Yes Recipient Signature: Yes Med Rec Note Co-signed by Attending: Coverage Notice Comment: [facility] Last DP export: 09/22/18 3:26 p Patient Name: JAMMIE GREEN Page [id number] at 0935 All edits/amendments must be made on the electronic document DICTATION DATE: 09/25/18933 MACHINE FELLER: CHRIS 09/25/18933 RPT#: [id number] DC DATE: STATUS: ADM IN [facility] [address] [place] [place] [address] END OF REPORT
--- NOTE | 2018-09-25 11:07 | NUR ---
PT REFUSES TO TAKE PO MEDS REFUSES FSBS STATES I AM NOT DIABETIC AND YOU ARE NOT CHECKING MY SUGAR ANYMORE
[2018-09-25 11:38] VITALS: BP 105/66
--- NOTE | 2018-09-25 16:08 | MORECARE ---
CASE MANAGEMENT DISCHARGE SUMMARY PATIENT: JAMMIE GREEN UNIT: [id number] ADM DATE: 09/11/18 AGE: 67 : 51 SEX: M ROOM/BED: D.2116 AUTHOR: SAMMIE,DOC PHYSICIAN: REFERRING PHYSICIAN: CATRACHO MERRITT DO DATE OF SERVICE: 09/25/18 Discharge Plan Patient Name: JAMMIE GREEN Facility: [facility]:[place] : 1950 Planned Disposition: Alf Facility Anticipated Discharge Date: 09/25/18 Discharge Date: Expected LOS: 14 Initial Reviewer: [email or web address] Initial Review Date: 09/11/2018 Generated: 09/25/18 5:08 pm DCP- Discharge Planning Updated by [id number]: Larry Estes on 09/25/18 8:[address] Patient Name: JAMMIE GREEN Encounter No: [id number] : 1950 Primary Insurance: MEDICARE A & B Anticipated DC Date: 09-25-2018 Planned Disposition: Alf Facility External Planned Provider:[facility], MEDICARE REHAB BED DCP follow-up note: CM SPOKE TO PT IN ROOM, PT IN AGREEMENT WITH DISCHARGE TO REHAB AT [facility]. CM ENCOURAGED PT TO WEAR BIPAP, PT STATES HE HAS BEEN WEARING IT BUT REFUSED WHEN THE BIG STORM CAME THROUGH STATING HE WAS NOT GOING TO RISK ELECTROCUTION FROM LIGHTENING. CM ENCOURAGED PT TO PARTICIPATE WITH EACH THERAPY SESSION. PT DENIES HE REFUSED ANYTHING AND STATES THE GIRL THAT WAS HERE LAST NIGHT TOLD THE THERAPIST TO SAY THAT. PT STATES HE WILL PARTICIPATE WITH THERAPY HE DOES WANT TO GO TO [facility]. CM FAXED REFERRAL TO [facility] AT [phone]. CM WAITING ADMISSION DETERMINATION FROM [facility] FOR LONG TERM REHAB SERVICES. MICHELE Baltazar DCP- Discharge Planning Updated by [email or web address]: Larry Estes on 09/22/18 3:[address] Patient Name: JAMMIE GREEN Encounter No: [id number] : 1950 Primary Insurance: MEDICARE A & B Anticipated DC Date: 09-25-2018 Planned Disposition: Alf Facility External Planned Provider: [facility], MEDICARE REHAB BED DCP follow-up note: CM RECEIVED ORDER FOR REHAB CLOSE TO PT'S HOME, MET WITH PT IN ROOM, DISCUSSED REHAB OPTIONS, PROVIDED LONG TERM FACILITY LISTING. PT SIGNED CHOICE FOR [facility], [facility]. IMPORTANT MESSAGE FROM MEDICARE PROVIDED AND EXPLAINED. CM CALLED MORAIMA AT [facility], , THEY CAN SERVICE 5 LITERS OXYGEN, WILL REVIEW REHAB REFERRAL. CM FAXED REFERRAL TO [facility] AT [phone]. CM WAITING ADMISSION DETERMINATION FROM [facility] FOR LONG TERM REHAB SERVICES. Larry Estes, CASE MANAGEMENT DCP- Discharge Planning Updated by [id number]: Becky Fontenot on 09/18/18 11:[address] CM called daughter and CEFERINO verbalized for [facility] out of [place] [phone]. Doctor Milton spoke with daughter this morning and he told her that he would see about getting patient transferred back to [facility] in accordance to a transfer back agreement. CM will contact transfer center to see if patient can transfer back although CM can't find a transfer back agreement. CM will continue to follow and assist as needed with discharge planning / needs. DCP- Discharge Planning Updated by [email or web address]: Becky Fontenot on 09/12/18 4:[address] Patient Name: JAMMIE GREEN Admission Status: ER Accout number: [id number] Admission Date: 09-11-2018 : 1950 Admission Diagnosis: Attending: CATRACHO MERRITT Current LOS: 1 Anticipated DC Date: Planned Disposition: Home Primary Insurance: MEDICARE A & B Discharge Planning Comments: CM met with daughter at bedside patient is currently intubated on vent. CM explained role and received verbal consent to evaluate. Patient lives with daughter Poornima. Poornima stated that the patient was in hospital in [place] 3 weeks ago for COPD. He was discharged with home and portable 02 with [facility]. They had set up patient with Home Health but patient refused once they came to admit. Poornima states that he will need home health when discharged from here. Poornima will get back with CM on what agency she wants to go with. CM will continue to follow and assist as needed with discharge planning / needs. Fly Worker: Becky Fontenot DCPIA - Discharge Planning Initial Assessment Updated by [email or web address]: Becky Fontenot on 09/12/18 4:58 pm * Is the patient Alert and Oriented? Yes * How many steps to enter\exit or inside your home? * PCP CORWIN BEAL * Pharmacy [facility] * Preadmission Environment Home with Family * ADLs Independent * Equipment Oxygen * Other Equipment HOME 02 & PORT 02, NEBULIZER - [facility] * List name and contact numbers for known caregivers / representatives who currently or will assist patient after discharge: POORNIMA ALONSO - DAUGHTER- [phone] * Verbal permission to speak to the caregivers and representatives has been obtained from the patient. N/A * Community resources currently utilized None * Additional services required to return to the preadmission environment? No * Can the patient safely return to the preadmission environment? Yes * Has this patient been hospitalized within the prior 30 days at any hospital? Yes External Providers External Provider: [facility] and [facility] Next Contact Date: 09/25/2018 Service Request Date: Service Type: Resolution: Reviewer: Comments: Coverage Notice Reviewer: [id number] Sharla Olsonmaria isabel Acharyar Notice Issued Date-Time: 09/18/2018 11:50 Notice Type: Patient Choice Letter Notice Delivered To: Family Member Relationship to Patient: Daughter Warehouse Worker Name: Poornima Alonso Delivery Method: PHONE - Phone Nancy Days: Prior Verbal Notification: Recipient Understood Notice: Yes Recipient Signature: Med Rec Note Co-signed by Attending: Coverage Notice Comment: Reviewer: [id number] Sharla Estes Notice Issued Date-Time: 09/22/2018 14:55 Notice Type: IM Discharge Notice Notice Delivered To: Patient Relationship to Patient: Warehouse Worker Name: Delivery Method: HAND - Hand Delivered Nancy Days: Prior Verbal Notification: Recipient Understood Notice: Yes Recipient Signature: Yes Med Rec Note Co-signed by Attending: Coverage Notice Comment: Reviewer: [email or web address] Sharla Estes Notice Issued Date-Time: 09/22/2018 14:55 Notice Type: Patient Choice Letter Notice Delivered To: Patient Relationship to Patient: Warehouse Worker Name: Delivery Method: HAND - Hand Delivered Nancy Days: Prior Verbal Notification: Recipient Understood Notice: Yes Recipient Signature: Yes Med Rec Note Co-signed by Attending: Coverage Notice Comment: [facility] NUR[facility] / RE[facility]AB Last DP export: 09/25/18 8:35 a Patient Name: JAMMIE GREEN Page [id number] at 1608 All edits/amendments must be made on the electronic document DICTATION DATE: 09/25/181606 COREMAKING MACHINE OPERATOR: CHRIS 09/25/181606 RPT#: [id number] DC DATE: STATUS: ADM IN [facility] [address] [place] [address] END OF REPORT
--- NOTE | 2018-09-25 16:52 | MORECARE ---
CASE MANAGEMENT DISCHARGE SUMMARY PATIENT: JAMMIE GREEN UNIT: [id number] ADM DATE: 09/11/18 AGE: 67 : 52 SEX: M ROOM/BED: D.9942 AUTHOR: SAMMIE,DOC PHYSICIAN: REFERRING PHYSICIAN: CATRACHO MERRITT DO DATE OF SERVICE: 09/25/18 Discharge Plan Patient Name: JAMMIE GREEN Facility: [facility]:[place] : 1950 Planned Disposition: Correction Facility Anticipated Discharge Date: 09/25/18 Discharge Date: Expected LOS: 14 Initial Reviewer: [id number] Initial Review Date: 09/11/2018 Generated: 09/25/18 5:52 pm Comments DCP- Discharge Planning Updated by [email or web address]: Larry Estes on 09/25/18 3:[address] Patient Name: JAMMIE GREEN Encounter No: [id number] : 1950 Primary Insurance: MEDICARE A & B Anticipated DC Date: 09-25-2018 Planned Disposition: Correction Facility External Planned Provider: [facility] MED[facility] REH[facility] B[facility] DCP follow-up note: CM RECEIVED CALL FROM MORAIMA OF [facility], PT HAS REFUSED BIPAP AND HAS REFUSED THERAPY, [facility] WILL NOT ACCEPT PT DUE TO NON COMPLIANCE. CM NOTIFIED PT WHO INFORMED CM "WELL I GOT TO GO SOMEWHERE, I CAN'T GO HOME LIKE THIS". CM ENCOURAGED PT TO WEAR BIPAP AND PARTICIPATE WITH ALL THERAPY. PT DID NOT SAY HE WOULD DO IT. PT DID TELL CM TO SEND REFERRAL TO THE "OTHER PLACE" THAT HIS DAUGHTER TALKED ABOUT LAST WEEK. CM CALLED PT'S DAUGHTER, ABIOLA ALONSO - DAUGHTER- [phone], WHO ASKED CM TO SEND REFERRAL TO [facility] FOR REHAB AND SHE WILL CALL AND SPEAK TO HER FATHER ABOUT FOLLOWING MEDICAL ORDERS. SHE IS CONCERNED THAT PT IS BECOMING MORE CONFUSED. CM DISCUSSED [facility] CARE PLACEMENT IF REHAB IS NOT AN OPTION. ABIOLA STATES PT LIVES IN A [place] BESIDE HER HOME, HAS NO ASSETS AND RECEIVES $1000 PER MONTH IN BENEFITS. IF HALFWAY IS NEEDED, THERE IS A HALFWAY IN [place] THAT CM CAN SEND REFERRALS TO. CM FAXED REFERRAL TO [facility] VIA [facility]ATT[facility] AT [phone]. CM NOTIFIED PATTY OF REHAB REFERRAL AT [phone]. CM WAITING ADMISSION DETERMINATION FROM [facility]. [facility] REFUSED PT HE IS NOT PARTICIPATING WITH THERAPY SERVICES AND REFUSING BIPAP. CM MAY HAVE TO ATTEMPT FDC CARE PLACEMENT IN HALFWAY IF PT DOES NOT COMPLY WITH THERAPY SERVICES AND BIPAP USE. MICHELE Baltazar MANAGEMENT DCP- Discharge Planning Updated by [id number]: Larry Estes on 09/25/18 8:[address] Patient Name: JAMMIE GREEN Encounter No: [id number] : 1950 Primary Insurance: MEDICARE A & B Anticipated DC Date: 09-25-2018 Planned Disposition: Correction Facility External Planned Provider:[facility], MEDICARE REHAB BED DCP follow-up note: CM SPOKE TO PT IN ROOM, PT IN AGREEMENT WITH DISCHARGE TO REHAB AT [facility]. CM ENCOURAGED PT TO WEAR BIPAP, PT STATES HE HAS BEEN WEARING IT BUT REFUSED WHEN THE BIG STORM CAME THROUGH STATING HE WAS NOT GOING TO RISK ELECTROCUTION FROM LIGHTENING. CM ENCOURAGED PT TO PARTICIPATE WITH EACH THERAPY SESSION. PT DENIES HE REFUSED ANYTHING AND STATES THE GIRL THAT WAS HERE LAST NIGHT TOLD THE THERAPIST TO SAY THAT. PT STATES HE WILL PARTICIPATE WITH THERAPY HE DOES WANT TO GO TO [facility]. CM FAXED REFERRAL TO [facility] AT [phone]. CM WAITING ADMISSION DETERMINATION FROM [facility] FOR CARE HOME REHAB SERVICES. MICHELE Baltazar DCP- Discharge Planning Updated by [id number]: Larry Estes on 09/22/18 3:[address] Patient Name: JAMMIE GREEN Encounter No: [id number] : 1950 Primary Insurance: MEDICARE A & B Anticipated DC Date: 09-25-2018 Planned Disposition: Correction Facility External Planned Provider: [facility], MEDICARE REHAB BED DCP follow-up note: CM RECEIVED ORDER FOR REHAB CLOSE TO PT'S HOME, MET WITH PT IN ROOM, DISCUSSED REHAB OPTIONS, PROVIDED CARE HOME FACILITY LISTING. PT SIGNED CHOICE FOR [facility] AND [facility]. IMPORTANT MESSAGE FROM MEDICARE PROVIDED AND EXPLAINED. CM CALLED MORAIMA AT [facility], , THEY CAN SERVICE 5 LITERS OXYGEN, WILL REVIEW REHAB REFERRAL. CM FAXED REFERRAL TO [facility] AT [phone]. CM WAITING ADMISSION DETERMINATION FROM [facility] FOR [facility]ARE HOME REHAB SERVICES. Larry Estes, CASE MANAGEMENT DCP- Discharge Planning Updated by [email or web address]: Becky Fontenot on 09/18/18 11:[address] CM called daughter and CEFERINO verbalized for [facility] out of [place] [phone]. Doctor Milton spoke with daughter this morning and he told her that he would see about getting patient transferred back to [facility] in accordance to a transfer back agreement. CM will contact transfer center to see if patient can transfer back although CM can't find a transfer back agreement. CM will continue to follow and assist as needed with discharge planning / needs. DCP- Discharge Planning Updated by [email or web address]: Becky Fontenot on 09/12/18 4:[address] Patient Name: JAMMIE GREEN Admission Status: ER Accout number: [id number] Admission Date: 09-11-2018 : 1950 Admission Diagnosis: Attending: CATRACHO MERRITT Current LOS: 1 Anticipated DC Date: Planned Disposition: Home Primary Insurance: MEDICARE A & B Discharge Planning Comments: CM met with daughter at bedside patient is currently intubated on vent. CM explained role and received verbal consent to evaluate. Patient lives with daughter Abiola. Abiola stated that the patient was in hospital in [place] 3 weeks ago for COPD. He was discharged with home and portable 02 with [facility]. They had set up patient with Home Health but patient refused once they came to admit. Abiola states that he will need home health when discharged from here. Abiola will get back with CM on what agency she wants to go with. CM will continue to follow and assist as needed with discharge planning / needs. Direct Service Worker: Becky Fontenot DCPIA - Discharge Planning Initial Assessment Updated by [email or web address]: Becky Fontenot on 09/12/18 4:58 pm * Is the patient Alert and Oriented? Yes * How many steps to enter\\exit or inside your home? * PCP CORWIN BEAL * Pharmacy [facility] * Preadmission Environment Home with Family * ADLs Independent * Equipment Oxygen * Other Equipment HOME 02 & PORT 02, NEBULIZER - [facility] * List name and contact numbers for known caregivers / representatives who currently or will assist patient after discharge: ABIOLA ALONSO - DAUGHTER- [phone] * Verbal permission to speak to the caregivers and representatives has been obtained from the patient. N/A * Community resources currently utilized None * Additional services required to return to the preadmission environment? No * Can the patient safely return to the preadmission environment? Yes * Has this patient been hospitalized within the prior 30 days at any hospital? Yes Coverage Notice Reviewer: [id number] Sharla Fontenot Notice Issued Date-Time: 09/18/2018 11:50 Notice Type: Patient Choice Letter Notice Delivered To: Family Member Relationship to Patient: Daughter Western Philosophy Professor Name: Abiola Alonso Delivery Method: PHONE - Phone Nancy Days: Prior Verbal Notification: Recipient Understood Notice: Yes Recipient Signature: Med Rec Note Co-signed by Attending: Coverage Notice Comment: Reviewer: [id number] Estes Notice Issued Date-Time: 09/22/2018 14:55 Notice Type: Patient Choice Letter Notice Delivered To: Patient Relationship to Patient: Western Philosophy Professor Name: Delivery Method: HAND - Hand Delivered Nancy Days: Prior Verbal Notification: Recipient Understood Notice: Yes Recipient Signature: Yes Med Rec Note Co-signed by Attending: Coverage Notice Comment: [facility] Reviewer: [id number] Estes Notice Issued Date-Time: 09/22/2018 14:55 Notice Type: IM Discharge Notice Notice Delivered To: Patient Relationship to Patient: Western Philosophy Professor Name: Delivery Method: HAND - Hand Delivered Nancy Days: Prior Verbal Notification: Recipient Understood Notice: Yes Recipient Signature: Yes Med Rec Note Co-signed by Attending: Coverage Notice Comment: Last DP export: 09/25/18 3:08 p Patient Name: JAMMIE GREEN Page [id number] at 1652 All edits/amendments must be made on the electronic document DICTATION DATE: 09/25/181650 SOLE POLISHER: CHRIS 09/25/181650 RPT#: [id number] DC DATE: STATUS: ADM IN [facility] [address] [place] [address] END OF REPORT
[2018-09-25 18:48] VITALS: BP 142/85
--- NOTE | 2018-09-25 19:30 | NUR ---
PATIENT REFUSING TELEMETRY.
--- NOTE | 2018-09-25 19:31 | NUR ---
RESUMING PATIENT CARE. PATIENT IS ALERT AND ORIENTED, SITTING UP IN BED. RESPIRATIONS ARE EVEN AND UNLABORED. NO S/S OF DISTRESS. NO C/O PAIN. CALL LIGT WITHIN REACH. WILL CPOC.
[2018-09-25 20:00] VITALS: BP 134/90
--- NOTE | 2018-09-25 23:48 | NUR ---
PATIENT REFUSING TELEMETRY
[2018-09-26 04:00] VITALS: BP 136/69
[2018-09-26 08:49] VITALS: BP 131/93
--- NOTE | 2018-09-26 08:51 | MORECARE ---
CASE MANAGEMENT DISCHARGE SUMMARY PATIENT: JAMMIE GREEN UNIT: [id number] ADM DATE: 09/11/18 AGE: 67 : 51 SEX: M ROOM/BED: D.0426 AUTHOR: SAMMIE,DOC PHYSICIAN: REFERRING PHYSICIAN: CATRACHO MERRITT DO DATE OF SERVICE: 09/26/18 Discharge Plan Patient Name: JAMMIE GREEN Facility: [facility]:[place] : 1950 Planned Disposition: Usp Facility Anticipated Discharge Date: 09/25/18 Discharge Date: Expected LOS: 14 Initial Reviewer: [id number] Initial Review Date: 09/11/2018 Generated: 09/26/18 9:51 am Comments DCP- Discharge Planning Updated by [id number]: Larry Estes on 09/25/18 3:[address] Patient Name: JAMMIE GREEN Encounter No: [id number] : 1950 Primary Insurance: MEDICARE A & B Anticipated DC Date: 09-25-2018 Planned Disposition: Usp Facility External Planned Provider: [facility] RE[facility] B[facility] DCP follow-up note: CM RECEIVED CALL FROM M[facility]AIMA OF [facility], PT HAS REFUSED BIPAP AND HAS REFUSED THERAPY, [facility] WILL NOT ACCEPT PT DUE TO NON COMPLIANCE. CM NOTIFIED PT WHO INFORMED CM "WELL I GOT TO GO SOMEWHERE, I CAN'T GO HOME LIKE THIS". CM ENCOURAGED PT TO WEAR BIPAP AND PARTICIPATE WITH ALL THERAPY. PT DID NOT SAY HE WOULD DO IT. PT DID TELL CM TO SEND REFERRAL TO THE "OTHER PLACE" THAT HIS DAUGHTER TALKED ABOUT LAST WEEK. CM CALLED PT'S DAUGHTER, ABIOLA ALONSO - DAUGHTER- [phone], WHO ASKED CM TO SEND REFERRAL TO [facility] FOR REHAB AND SHE WILL CALL AND SPEAK TO HER FATHER ABOUT FOLLOWING MEDICAL ORDERS. SHE IS CONCERNED THAT PT IS BECOMING MORE CONFUSED. CM DISCUSSED [facility] CARE PLACEMENT IF REHAB IS NOT AN OPTION. ABIOLA STATES PT LIVES IN A [place] BESIDE HER HOME, HAS NO ASSETS AND RECEIVES $1000 PER MONTH IN BENEFITS. IF HALF-WAY IS NEEDED, THERE IS A HALF-WAY IN [place] THAT CM CAN SEND REFERRALS TO. CM FAXED REFERRAL TO [facility] VIA [facility]ATT[facility] AT [phone]. CM NOTIFIED PATTY OF REHAB REFERRAL AT [phone]. CM WAITING ADMISSION DETERMINATION FROM [facility]. [facility] REFUSED PT HE IS NOT PARTICIPATING WITH THERAPY SERVICES AND REFUSING BIPAP. CM MAY HAVE TO ATTEMPT [facility] CARE PLACEMENT IN HALF-WAY IF PT DOES NOT COMPLY WITH THERAPY SERVICES AND BIPAP USE. MICHELE Baltazar MANAGEMENT DCP- Discharge Planning Updated by [email or web address]: Larry Estes on 09/25/18 8:[address] Patient Name: JAMMIE GREEN Encounter No: [id number] : 1950 Primary Insurance: MEDICARE A & B Anticipated DC Date: 09-25-2018 Planned Disposition: Usp Facility External Planned Provider:[facility], MEDICARE REHAB BED DCP follow-up note: CM SPOKE TO PT IN ROOM, PT IN AGREEMENT WITH DISCHARGE TO REHAB AT [facility]. CM ENCOURAGED PT TO WEAR BIPAP, PT STATES HE HAS BEEN WEARING IT BUT REFUSED WHEN THE BIG STORM CAME THROUGH STATING HE WAS NOT GOING TO RISK ELECTROCUTION FROM LIGHTENING. CM ENCOURAGED PT TO PARTICIPATE WITH EACH THERAPY SESSION. PT DENIES HE REFUSED ANYTHING AND STATES THE GIRL THAT WAS HERE LAST NIGHT TOLD THE THERAPIST TO SAY THAT. PT STATES HE WILL PARTICIPATE WITH THERAPY HE DOES WANT TO GO TO [facility]. CM FAXED REFERRAL TO [facility] AT [phone]. CM WAITING ADMISSION DETERMINATION FROM [facility] FOR [facility] REHAB SERVICES. MICHELE Baltazar DCP- Discharge Planning Updated by [id number]: Larry Estes on 09/22/18 3:[address] Patient Name: JAMMIE GREEN Encounter No: [id number] : 1950 Primary Insurance: MEDICARE A & B Anticipated DC Date: 09-25-2018 Planned Disposition: Usp Facility External Planned Provider: [facility], MEDICARE REHAB BED DCP follow-up note: CM RECEIVED ORDER FOR REHAB CLOSE TO PT'S HOME, MET WITH PT IN ROOM, DISCUSSED REHAB OPTIONS, PROVIDED USP FACILITY LISTING. PT SIGNED CHOICE FOR [facility] AND [facility]. IMPORTANT MESSAGE FROM MEDICARE PROVIDED AND EXPLAINED. CM CALLED MORAIMA AT [facility], , THEY CAN SERVICE 5 LITERS OXYGEN, WILL REVIEW REHAB REFERRAL. CM FAXED REFERRAL TO [facility] AT [phone]. CM WAITING ADMISSION DETERMINATION FROM [facility] FOR [facility] REHAB SERVICES. Larry Estes, CASE MANAGEMENT DCP- Discharge Planning Updated by [id number]: Becky Fontenot on 09/18/18 11:[address] CM called daughter and CEFERINO verbalized for [facility] out of [place] [phone]. Doctor Milton spoke with daughter this morning and he told her that he would see about getting patient transferred back to [facility] in accordance to a transfer back agreement. CM will contact transfer center to see if patient can transfer back although CM can't find a transfer back agreement. CM will continue to follow and assist as needed with discharge planning / needs. DCP- Discharge Planning Updated by [id number]: Becky Fontenot on 09/12/18 4:[address] Patient Name: JAMMIE GREEN Admission Status: ER Accout number: [id number] Admission Date: 09-11-2018 : 1950 Admission Diagnosis: Attending: CATRACHO MERRITT Current LOS: 1 Anticipated DC Date: Planned Disposition: Home Primary Insurance: MEDICARE A & B Discharge Planning Comments: CM met with daughter at bedside patient is currently intubated on vent. CM explained role and received verbal consent to evaluate. Patient lives with daughter Abiola. Abiola stated that the patient was in hospital in [place] 3 weeks ago for COPD. He was discharged with home and portable 02 with [facility]. They had set up patient with Home Health but patient refused once they came to admit. Abiola states that he will need home health when discharged from here. Abiola will get back with CM on what agency she wants to go with. CM will continue to follow and assist as needed with discharge planning / needs. Depilatory Painter: Becky Fontenot DCPIA - Discharge Planning Initial Assessment Updated by [id number]: Becky Fontenot on 09/12/18 4:58 pm * Is the patient Alert and Oriented? Yes * How many steps to enter\\exit or inside your home? * PCP CORWIN BEAL * Pharmacy [facility] * Preadmission Environment Home with Family * ADLs Independent * Equipment Oxygen * Other Equipment HOME 02 & PORT 02, NEBULIZER - [facility] * List name and contact numbers for known caregivers / representatives who currently or will assist patient after discharge: ABIOLA ALONSO - DAUGHTER- [phone] * Verbal permission to speak to the caregivers and representatives has been obtained from the patient. N/A * Community resources currently utilized None * Additional services required to return to the preadmission environment? No * Can the patient safely return to the preadmission environment? Yes * Has this patient been hospitalized within the prior 30 days at any hospital? Yes Coverage Notice Reviewer: [id number] Sharla Fontenot Notice Issued Date-Time: 09/18/2018 11:50 Notice Type: Patient Choice Letter Notice Delivered To: Family Member Relationship to Patient: Daughter Ice Skating Coach Name: Abiola Alonso Delivery Method: PHONE - Phone Nancy Days: Prior Verbal Notification: Recipient Understood Notice: Yes Recipient Signature: Med Rec Note Co-signed by Attending: Coverage Notice Comment: Reviewer: [id number] Estes Notice Issued Date-Time: 09/22/2018 14:55 Notice Type: IM Discharge Notice Notice Delivered To: Patient Relationship to Patient: Ice Skating Coach Name: Delivery Method: HAND - Hand Delivered Nancy Days: Prior Verbal Notification: Recipient Understood Notice: Yes Recipient Signature: Yes Med Rec Note Co-signed by Attending: Coverage Notice Comment: Reviewer: [id number] Estes Notice Issued Date-Time: 09/22/2018 14:55 Notice Type: Patient Choice Letter Notice Delivered To: Patient Relationship to Patient: Ice Skating Coach Name: Delivery Method: HAND - Hand Delivered Nancy Days: Prior Verbal Notification: Recipient Understood Notice: Yes Recipient Signature: Yes Med Rec Note Co-signed by Attending: Coverage Notice Comment: [facility] REHAB Last DP export: 09/25/18 3:52 p Patient Name: JAMMIE GREEN Page 73725 at 0851 All edits/amendments must be made on the electronic document DICTATION DATE: 09/26/18850 GUEST ROOM ATTENDANT: CHRIS 09/26/18850 RPT#: [id number] DC DATE: STATUS: ADM IN [facility] [address] [place] [address] END OF REPORT
[2018-09-26 09:27] LABS: HEMATOCRIT 48.5 % (42.0-54.0); MCH 29.7 pg (26.0-34.0); MCV 90.1 fL (80.0-100.0); MEAN PLATELET VOLUME 9.7 fL (7.4-10.4); NEUTROPHILS 70.5 % (40-80); PLATELET COUNT 257 10x3/uL (130-400); RBC 5.38 10x6/uL (4.20-6.10); RDW 14.8 % (11.5-14.5); WBC 6.7 10x3/uL (4.8-10.8)
[2018-09-26 09:32] LABS: ANION GAP 8.6 mmol/L (8-16); CALCIUM 9.4 mg/dL (8.5-10.1); CARBON DIOXIDE 35.4 mmol/L (21.0-32.0); CREATININE - SERUM 1.1 mg/dL (0.6-1.3); MAGNESIUM - SERUM 1.8 mg/dL (1.8-2.4); PHOSPHOROUS 4.1 mg/dL (2.5-4.9)
--- NOTE | 2018-09-26 12:42 | MORECARE ---
CASE MANAGEMENT DISCHARGE SUMMARY PATIENT: JAMMIE GREEN UNIT: [id number] ADM DATE: 09/11/18 AGE: 67 : 52 SEX: M ROOM/BED: D.2108 AUTHOR: SAMMIE,DOC PHYSICIAN: REFERRING PHYSICIAN: CATRACHO MERRITT DO DATE OF SERVICE: 09/26/18 Discharge Plan Patient Name: JAMMIE GREEN Facility: [facility]:[place] : 1950 Planned Disposition: Half-Way Facility Anticipated Discharge Date: 09/25/18 Discharge Date: Expected LOS: 14 Initial Reviewer: [id number] Initial Review Date: 09/11/2018 Generated: 09/26/18 1:41 pm Comments DCP- Discharge Planning Updated by [id number]: Larry Estes on 09/25/18 3:[address] Patient Name: JAMMIE GREEN Encounter No: [id number] : 1950 Primary Insurance: MEDICARE A & B Anticipated DC Date: 09-25-2018 Planned Disposition: Half-Way Facility External Planned Provider: [facility] REH[facility] B[facility] DCP follow-up note: CM RECEIVED CALL FROM [facility], PT HAS REFUSED BIPAP AND HAS REFUSED THERAPY, [facility] WILL NOT ACCEPT PT DUE TO NON COMPLIANCE. CM NOTIFIED PT WHO INFORMED CM "WELL I GOT TO GO SOMEWHERE, I CAN'T GO HOME LIKE THIS". CM ENCOURAGED PT TO WEAR BIPAP AND PARTICIPATE WITH ALL THERAPY. PT DID NOT SAY HE WOULD DO IT. PT DID TELL CM TO SEND REFERRAL TO THE "OTHER PLACE" THAT HIS DAUGHTER TALKED ABOUT LAST WEEK. CM CALLED PT'S DAUGHTER, ABIOLA ALONSO - DAUGHTER- [phone], WHO ASKED CM TO SEND REFERRAL TO [facility] FOR REHAB AND SHE WILL CALL AND SPEAK TO HER FATHER ABOUT FOLLOWING MEDICAL ORDERS. SHE IS CONCERNED THAT PT IS BECOMING MORE CONFUSED. CM DISCUSSED PENITENTIARY CARE PLACEMENT IF REHAB IS NOT AN OPTION. ABIOLA STATES PT LIVES IN A [place] BESIDE HER HOME, HAS NO ASSETS AND RECEIVES $1000 PER MONTH IN BENEFITS. IF CORRECTION IS NEEDED, THERE IS A [facility] IN [place] THAT CM CAN SEND REFERRALS TO. CM FAXED REFERRAL TO [facility]IA [facility] AT [phone]. CM NOTIFIED [facility] OF REHAB REFERRAL AT [phone]. CM WAITING ADMISSION DETERMINATION FROM [facility]. [facility] REFUSED PT HE IS NOT PARTICIPATING WITH THERAPY SERVICES AND REFUSING BIPAP. CM MAY HAVE TO ATTEMPT PENITENTIARY CARE PLACEMENT IN CORRE[place] IF PT DOES NOT COMPLY WITH THERAPY SERVICES AND BIPAP USE. MICHELE Baltazar MANAGEMENT DCP- Discharge Planning Updated by [id number]: Larry Estes on 09/25/18 8:[address] Patient Name: JAMMIE GREEN Encounter No: [id number] : 1950 Primary Insurance: MEDICARE A & B Anticipated DC Date: 09-25-2018 Planned Disposition: Half-Way Facility External Planned Provider:[facility], MEDICARE REHAB BED DCP follow-up note: CM SPOKE TO PT IN ROOM, PT IN AGREEMENT WITH DISCHARGE TO REHAB AT [facility]. CM ENCOURAGED PT TO WEAR BIPAP, PT STATES HE HAS BEEN WEARING IT BUT REFUSED WHEN THE BIG STORM CAME THROUGH STATING HE WAS NOT GOING TO RISK ELECTROCUTION FROM LIGHTENING. CM ENCOURAGED PT TO PARTICIPATE WITH EACH THERAPY SESSION. PT DENIES HE REFUSED ANYTHING AND STATES THE GIRL THAT WAS HERE LAST NIGHT TOLD THE THERAPIST TO SAY THAT. PT STATES HE WILL PARTICIPATE WITH THERAPY HE DOES WANT TO GO TO [facility]. CM FAXED REFERRAL TO [facility] AT [phone]. CM WAITING ADMISSION DETERMINATION FROM [facility] FOR LONG TERM REHAB SERVICES. MICHELE Baltazar DCP- Discharge Planning Updated by [id number]: Larry Estes on 09/22/18 3:[address] Patient Name: JAMMIE GREEN Encounter No: [id number] : 1950 Primary Insurance: MEDICARE A & B Anticipated DC Date: 09-25-2018 Planned Disposition: Half-Way Facility External Planned Provider: [facility], MEDICARE REHAB BED DCP follow-up note: CM RECEIVED ORDER FOR REHAB CLOSE TO PT'S HOME, MET WITH PT IN ROOM, DISCUSSED REHAB OPTIONS, PROVIDED LONG TERM FACILITY LISTING. PT SIGNED CHOICE FOR [facility]. IMPORTANT MESSAGE FROM MEDICARE PROVIDED AND EXPLAINED. CM CALLED MORAIMA AT [facility], , THEY CAN SERVICE 5 LITERS OXYGEN, WILL REVIEW REHAB REFERRAL. CM FAXED REFERRAL TO [facility] AT [phone]. CM WAITING ADMISSION DETERMINATION FROM [facility] FOR LONG TERM REHAB SERVICES. Larry Estes, CASE MANAGEMENT DCP- Discharge Planning Updated by [id number]: Becky Fontenot on 09/18/18 11:[address] CM called daughter and CEFERINO verbalized for [facility] out of [place] [phone]. Doctor Milton spoke with daughter this morning and he told her that he would see about getting patient transferred back to [facility] in accordance to a transfer back agreement. CM will contact transfer center to see if patient can transfer back although CM can't find a transfer back agreement. CM will continue to follow and assist as needed with discharge planning / needs. DCP- Discharge Planning Updated by [id number]: Becky Fontenot on 09/12/18 4:[address] Patient Name: JAMMIE GREEN Admission Status: ER Accout number: [id number] Admission Date: 09-11-2018 : 1950 Admission Diagnosis: Attending: CATRACHO MERRITT Current LOS: 1 Anticipated DC Date: Planned Disposition: Home Primary Insurance: MEDICARE A & B Discharge Planning Comments: CM met with daughter at bedside patient is currently intubated on vent. CM explained role and received verbal consent to evaluate. Patient lives with daughter Abiola. Abiola stated that the patient was in hospital in [place] 3 weeks ago for COPD. He was discharged with home and portable 02 with [facility]. They had set up patient with Home Health but patient refused once they came to admit. Abiola states that he will need home health when discharged from here. Abiola will get back with CM on what agency she wants to go with. CM will continue to follow and assist as needed with discharge planning / needs. It Help Desk Associate: Becky Fontenot DCPIA - Discharge Planning Initial Assessment Updated by [id number]: Becky Fontenot on 09/12/18 4:58 pm * Is the patient Alert and Oriented? Yes * How many steps to enter\\exit or inside your home? * PCP CORWIN BEAL * Pharmacy [facility] * Preadmission Environment Home with Family * ADLs Independent * Equipment Oxygen * Other Equipment HOME 02 & PORT 02, NEBULIZER - [facility] * List name and contact numbers for known caregivers / representatives who currently or will assist patient after discharge: ABIOLA ALONSO - DAUGHTER- [phone] * Verbal permission to speak to the caregivers and representatives has been obtained from the patient. N/A * Community resources currently utilized None * Additional services required to return to the preadmission environment? No * Can the patient safely return to the preadmission environment? Yes * Has this patient been hospitalized within the prior 30 days at any hospital? Yes External Providers External Provider: [facility] Next Contact Date: 09/26/2018 Service Request Date: Service Type: Resolution: Reviewer: Comments: Coverage Notice Reviewer: [id number] Sharla Fontenot Notice Issued Date-Time: 09/18/2018 11:50 Notice Type: Patient Choice Letter Notice Delivered To: Family Member Relationship to Patient: Daughter Marketing Development Specialist Name: Abiola Alonso Delivery Method: PHONE - Phone Nancy Days: Prior Verbal Notification: Recipient Understood Notice: Yes Recipient Signature: Med Rec Note Co-signed by Attending: Coverage Notice Comment: Reviewer: [id number] Estes Notice Issued Date-Time: 09/22/2018 14:55 Notice Type: IM Discharge Notice Notice Delivered To: Patient Relationship to Patient: Marketing Development Specialist Name: Delivery Method: HAND - Hand Delivered Nancy Days: Prior Verbal Notification: Recipient Understood Notice: Yes Recipient Signature: Yes Med Rec Note Co-signed by Attending: Coverage Notice Comment: Reviewer: MINNIE Estes Notice Issued Date-Time: 09/22/2018 14:55 Notice Type: Patient Choice Letter Notice Delivered To: Patient Relationship to Patient: Marketing Development Specialist Name: Delivery Method: HAND - Hand Delivered Nancy Days: Prior Verbal Notification: Recipient Understood Notice: Yes Recipient Signature: Yes Med Rec Note Co-signed by Attending: Coverage Notice Comment: [facility] Last DP export: 09/26/18 7:51 a Patient Name: JAMMIE GREEN Page 20044 at 1242 All edits/amendments must be made on the electronic document DICTATION DATE: 09/26/18 1241 DENTAL APPLIANCE FIXER: CHRIS 09/26/18 1241 RPT#: [id number] DC DATE: STATUS: ADM IN [facility] [address] [place] [place] [address] END OF REPORT
--- NOTE | 2018-09-26 12:51 | MORECARE ---
CASE MANAGEMENT DISCHARGE SUMMARY PATIENT: JAMMIE GREEN UNIT: [id number] ADM DATE: 09/11/18 AGE: 67 : 51 SEX: M ROOM/BED: D.2108 AUTHOR: SAMMIE,DOC PHYSICIAN: REFERRING PHYSICIAN: CATRACHO MERRITT DO DATE OF SERVICE: 09/26/18 Discharge Plan Patient Name: JAMMIE GREEN Facility: [facility]:[place] : 1950 Planned Disposition: Retirement Facility Anticipated Discharge Date: 09/25/18 Discharge Date: Expected LOS: 14 Initial Reviewer: [id number] Initial Review Date: 09/11/2018 Generated: 09/26/18 1:50 pm Comments DCP- Discharge Planning Updated by [id number]: Larry Estes on 09/26/18 11:[address] Patient Name: JAMMIE GREEN Encounter No: [id number] : 1950 Primary Insurance: MEDICARE A & B Anticipated DC Date: 09-25-2018 Planned Disposition: Retirement Facility External Planned Provider: [facility], MEDICARE REHAB BED DCP follow-up note: CM FAXED UPDATE TO [facility]IA [employer] AT [phone]. CM SPOKE TO PT AND DAUGHTER IN ROOM, BOTH ASKED THAT REFERRAL BE FAXED TO [facility], CHOICE WAS PREVIOUSLY SIGNED. CM FAXED REFERRAL TO [facility], . PT'S DAUGHTER HAS ALREADY CONTACTED [facility] IN [place] TO REQUEST REHAB / SKILLED NURSING CARE PLACEMENT. CM WAITING ADMISSION DETERMINATIONS FROM [facility] AND [facility]. Larry Estes CASE VINCENT DCP- Discharge Planning Updated by [id number]: Larry Estes on 09/25/18 3:[address] Patient Name: JAMMIE GREEN Encounter No: [id number] : 1950 Primary Insurance: MEDICARE A & B Anticipated DC Date: 09-25-2018 Planned Disposition: Retirement Facility External Planned Provider: [facility], MEDICARE REHAB BED DCP follow-up note: CM RECEIVED CALL FROM [facility], PT HAS REFUSED BIPAP AND HAS REFUSED THERAPY, [facility] WILL NOT ACCEPT PT DUE TO NON COMPLIANCE. CM NOTIFIED PT WHO INFORMED CM "WELL I GOT TO GO SOMEWHERE, I CAN'T GO HOME LIKE THIS". CM ENCOURAGED PT TO WEAR BIPAP AND PARTICIPATE WITH ALL THERAPY. PT DID NOT SAY HE WOULD DO IT. PT DID TELL CM TO SEND REFERRAL TO THE "OTHER PLACE" THAT HIS DAUGHTER TALKED ABOUT LAST WEEK. CM CALLED PT'S DAUGHTER, ABIOLA ALONSO - DAUGHTER- [phone], WHO ASKED CM TO SEND REFERRAL TO REPLACED BY [facility] FOR REHAB AND SHE WILL CALL AND SPEAK TO HER FATHER ABOUT FOLLOWING MEDICAL ORDERS. SHE IS CONCERNED THAT PT IS BECOMING MORE CONFUSED. CM DISCUSSED MIGRATION SPECIALIST CARE PLACEMENT IF REHAB IS NOT AN OPTION. ABIOLA STATES PT LIVES IN A CAMPER BESIDE HER HOME, HAS NO ASSETS AND RECEIVES $1000 PER MONTH IN BENEFITS. IF PRISON IS NEEDED, THERE IS A PRISON IN [place] THAT CM CAN SEND REFERRALS TO. CM FAXED REFERRAL TO [facility]IA [facility] AT [phone]. CM NOTIFIED [facility] OF REHAB REFERRAL AT [phone]. CM WAITING ADMISSION DETERMINATION FROM [facility]. [facility]ERSON GUILLEN REFUSED PT HE IS NOT PARTICIPATING WITH THERAPY SERVICES AND REFUSING BIPAP. CM MAY HAVE TO ATTEMPT SKILLED NURSING CARE PLACEMENT IN PRISON IF PT DOES NOT COMPLY WITH THERAPY SERVICES AND BIPAP USE. Larry Estes, CASE MANAGEMENT DCP- Discharge Planning Updated by [id number]: Larry Estes on 09/25/18 8:[address] Patient Name: JAMMIE GREEN Encounter No: [id number] : 1950 Primary Insurance: MEDICARE A & B Anticipated DC Date: 09-25-2018 Planned Disposition: Retirement Facility External Planned Provider:[facility], MEDICARE REHAB BED DCP follow-up note: CM SPOKE TO PT IN ROOM, PT IN AGREEMENT WITH DISCHARGE TO REHAB AT [facility]. CM ENCOURAGED PT TO WEAR BIPAP, PT STATES HE HAS BEEN WEARING IT BUT REFUSED WHEN THE BIG STORM CAME THROUGH STATING HE WAS NOT GOING TO RISK ELECTROCUTION FROM LIGHTENING. CM ENCOURAGED PT TO PARTICIPATE WITH EACH THERAPY SESSION. PT DENIES HE REFUSED ANYTHING AND STATES THE GIRL THAT WAS HERE LAST NIGHT TOLD THE THERAPIST TO SAY THAT. PT STATES HE WILL PARTICIPATE WITH THERAPY HE DOES WANT TO GO TO [facility]. CM FAXED REFERRAL TO [facility] AT [phone]. CM WAITING ADMISSION DETERMINATION FROM [facility] FOR NURSING HOME REHAB SERVICES. Larry Estes, CASE MANAGEMENT DCP- Discharge Planning Updated by [id number]: Larry Estes on 09/22/18 3:[address] Patient Name: JAMMIE GREEN Encounter No: [id number] : 1950 Primary Insurance: MEDICARE A & B Anticipated DC Date: 09-25-2018 Planned Disposition: Retirement Facility External Planned Provider: [facility], MEDICARE REHAB BED DCP follow-up note: CM RECEIVED ORDER FOR REHAB CLOSE TO PT'S HOME, MET WITH PT IN ROOM, DISCUSSED REHAB OPTIONS, PROVIDED NURSING HOME FACILITY LISTING. PT SIGNED CHOICE FOR [facility]. IMPORTANT MESSAGE FROM MEDICARE PROVIDED AND EXPLAINED. CM CALLED MORAIMA AT [facility], , THEY CAN SERVICE 5 LITERS OXYGEN, WILL REVIEW REHAB REFERRAL. CM FAXED REFERRAL TO [facility] AT [phone]. CM WAITING ADMISSION DETERMINATION FROM [facility] FOR [facility] HOME REH[facility] SERVICES. Larry Estes CASE MANAGEMENT DCP- Discharge Planning Updated by [id number]: Becky Fontenot on 09/18/18 11:[address] CM called daughter and CEFERINO verbalized for [facility] out of [place] [phone]. Doctor Milton spoke with daughter this morning and he told her that he would see about getting patient transferred back to [facility] in accordance to a transfer back agreement. CM will contact transfer center to see if patient can transfer back although CM can't find a transfer back agreement. CM will continue to follow and assist as needed with discharge planning / needs. DCP- Discharge Planning Updated by [id number]: Becky Fontenot on 09/12/18 4:[address] Patient Name: JAMMIE GREEN Admission Status: ER Accout number: [id number] Admission Date: 09-11-2018 : 1950 Admission Diagnosis: Attending: CATRACHO MERRITT Current LOS: 1 Anticipated DC Date: Planned Disposition: Home Primary Insurance: MEDICARE A & B Discharge Planning Comments: CM met with daughter at bedside patient is currently intubated on vent. CM explained role and received verbal consent to evaluate. Patient lives with daughter Abiola. Abiola stated that the patient was in hospital in [place] 3 weeks ago for COPD. He was discharged with home and portable 02 with [facility]. They had set up patient with Home Health but patient refused once they came to admit. Abiola states that he will need home health when discharged from here. Abiola will get back with CM on what agency she wants to go with. CM will continue to follow and assist as needed with discharge planning / needs. Mirror Painter: Becky Fontenot DCPIA - Discharge Planning Initial Assessment Updated by [id number]: Becky Fontenot on 09/12/18 4:58 pm * Is the patient Alert and Oriented? Yes * How many steps to enter\\exit or inside your home? * [facility]acy [facility] * Preadmission Environment Home with Family * ADLs Independent * Equipment Oxygen * Other Equipment HOME 02 & PORT 02, NEBULIZER - [facility] * List name and contact numbers for known caregivers / representatives who currently or will assist patient after discharge: ABIOLA ALONSO - DAUGHTER- [phone] * Verbal permission to speak to the caregivers and representatives has been obtained from the patient. N/A * Community resources currently utilized None * Additional services required to return to the preadmission environment? No * Can the patient safely return to the preadmission environment? Yes * Has this patient been hospitalized within the prior 30 days at any hospital? Yes Coverage Notice Reviewer: [id number] - Becky Fontenot Notice Issued Date-Time: 09/18/2018 11:50 Notice Type: Patient Choice Letter Notice Delivered To: Family Member Relationship to Patient: Daughter Benzol Still Operator Name: Abiola Alonso Delivery Method: PHONE - Phone Nancy Days: Prior Verbal Notification: Recipient Understood Notice: Yes Recipient Signature: Med Rec Note Co-signed by Attending: Coverage Notice Comment: Reviewer: [id number] - Larry Estes Notice Issued Date-Time: 09/22/2018 14:55 Notice Type: Patient Choice Letter Notice Delivered To: Patient Relationship to Patient: Benzol Still Operator Name: Delivery Method: HAND - Hand Delivered Nancy Days: Prior Verbal Notification: Recipient Understood Notice: Yes Recipient Signature: Yes Med Rec Note Co-signed by Attending: Coverage Notice Comment: [facility] Reviewer: [id number] Sharla Estes Notice Issued Date-Time: 09/22/2018 14:55 Notice Type: IM Discharge Notice Notice Delivered To: Patient Relationship to Patient: Benzol Still Operator Name: Delivery Method: HAND - Hand Delivered Nancy Days: Prior Verbal Notification: Recipient Understood Notice: Yes Recipient Signature: Yes Med Rec Note Co-signed by Attending: Coverage Notice Comment: Last DP export: 09/26/18 11:41 a Patient Name: JAMMIE GREEN Page [id number] at 1251 All edits/amendments must be made on the electronic document DICTATION DATE: 09/26/18 1250 ASSIGNMENT AGENT: CHRIS 09/26/18 1250 RPT#: [id number] DC DATE: STATUS: ADM IN [facility] [address] [place] [address] END OF REPORT
--- NOTE | 2018-09-26 13:03 | NUR ---
Nutrition follow-up: Diet: Regular mechanical soft with thin liquids PO intake 100% of most meals labs reviewed Wt: 168# RDN following.
[2018-09-26 13:43] VITALS: BP 146/88
--- NOTE | 2018-09-26 14:06 | NUR ---
PT TOOK A SHOWER AND DID 100% ON HIS OWN AND STATES HE IS FEELING REALLY STRONG AND GOOD OVERALL. DENIES ANY SOB OR PAIN. PT SITTING UP ON EDGE OF BED AND DENIES ANY CURRENT NEEDS. CL IN REACH,DAUGHTER AT BEDSIDE. WILL CTM.
--- NOTE | 2018-09-26 16:15 | MORECARE ---
CASE MANAGEMENT DISCHARGE SUMMARY PATIENT: JAMMIE GREEN UNIT: [id number] ADM DATE: 09/11/18 AGE: 67 : 52 SEX: M ROOM/BED: D.2100 AUTHOR: SAMMIE,DOC PHYSICIAN: REFERRING PHYSICIAN: CATRACHO MERRITT DO DATE OF SERVICE: 09/26/18 Discharge Plan Patient Name: JAMMIE GREEN Facility: [facility]:[place] : 1950 Planned Disposition: Nursing Facility KRYSTAL Cert Anticipated Discharge Date: 09/27/18 Discharge Date: Expected LOS: 16 Initial Reviewer: [id number] Initial Review Date: 09/11/2018 Generated: 09/26/18 5:15 pm Comments DCP- Discharge Planning Updated by [id number]: Larry Estes on 09/26/18 11:[address] Patient Name: JAMMIE GREEN Encounter No: [id number] : 1950 Primary Insurance: MEDICARE A & B Anticipated DC Date: 09-25-2018 Planned Disposition: Detention Facility External Planned Provider: [facility], MEDICARE REHAB BED DCP follow-up note: CM FAXED UPDATE TO [facility] VIA [employer] AT [phone]. CM SPOKE TO PT AND DAUGHTER IN ROOM, BOTH ASKED THAT REFERRAL BE FAXED TO [facility], CHOICE WAS PREVIOUSLY SIGNED. CM FAXED REFERRAL TO [facility], . PT'S DAUGHTER HAS ALREADY CONTACTED [facility] IN [place] TO REQUEST REHAB / [facility]CF CARE PLACEMENT. LEISA WAITING ADMISSION DETERMINATIONS FROM [facility] AND [facility]. Larry Estes CASE VINCENT DCP- Discharge Planning Updated by [id number]: Larry Estes on 09/25/18 3:[address] Patient Name: JAMMIE GREEN Encounter No: [id number] : 1950 Primary Insurance: MEDICARE A & B Anticipated DC Date: 09-25-2018 Planned Disposition: Detention Facility External Planned Provider: [facility], MEDICARE REHAB BED DCP follow-up note: LEISA RECEIVED CALL FROM [facility], PT HAS REFUSED BIPAP AND HAS REFUSED THERAPY, [facility] WILL NOT ACCEPT PT DUE TO NON COMPLIANCE. CM NOTIFIED PT WHO INFORMED CM "WELL I GOT TO GO SOMEWHERE, I CAN'T GO HOME LIKE THIS". CM ENCOURAGED PT TO WEAR BIPAP AND PARTICIPATE WITH ALL THERAPY. PT DID NOT SAY HE WOULD DO IT. PT DID TELL CM TO SEND REFERRAL TO THE "OTHER PLACE" THAT HIS DAUGHTER TALKED ABOUT LAST WEEK. CM CALLED PT'S DAUGHTER, ABIOLA ALONSO - DAUGHTER- [phone], WHO ASKED CM TO SEND REFERRAL TO [facility] FOR REHAB AND SHE WILL CALL AND SPEAK TO HER FATHER ABOUT FOLLOWING MEDICAL ORDERS. SHE IS CONCERNED THAT PT IS BECOMING MORE CONFUSED. CM DISCUSSED ROAD ROLLER ENGINEER CARE PLACEMENT IF REHAB IS NOT AN OPTION. ABIOLA STATES PT LIVES IN A [place] BESIDE HER HOME, HAS NO ASSETS AND RECEIVES $1000 PER MONTH IN BENEFITS. IF FDC IS NEEDED, THERE IS A FDC IN [place] THAT CM CAN SEND REFERRALS TO. CM FAXED REFERRAL TO [facility] VIA [facility] AT [phone]. CM NOTIFIED [facility]ATT[facility] OF REHAB REFERRAL AT [phone]. CM WAITING ADMISSION DETERMINATION FROM [facility]. [facility] REFUSED PT HE IS NOT PARTICIPATING WITH THERAPY SERVICES AND REFUSING BIPAP. CM MAY HAVE TO ATTEMPT [facility] CARE PLACEMENT IN [facility] IF PT DOES NOT COMPLY WITH THERAPY SERVICES AND BIPAP USE. Larry Estes, CASE MANAGEMENT DCP- Discharge Planning Updated by [id number]: Larry Estes on 09/25/18 8:[address] Patient Name: JAMMIE GREEN Encounter No: [id number] : 1950 Primary Insurance: MEDICARE A & B Anticipated DC Date: 09-25-2018 Planned Disposition: Detention Facility External Planned Provider:[facility], MEDICARE REHAB BED DCP follow-up note: CM SPOKE TO PT IN ROOM, PT IN AGREEMENT WITH DISCHARGE TO REHAB AT [facility]. CM ENCOURAGED PT TO WEAR BIPAP, PT STATES HE HAS BEEN WEARING IT BUT REFUSED WHEN THE BIG STORM CAME THROUGH STATING HE WAS NOT GOING TO RISK ELECTROCUTION FROM LIGHTENING. CM ENCOURAGED PT TO PARTICIPATE WITH EACH THERAPY SESSION. PT DENIES HE REFUSED ANYTHING AND STATES THE GIRL THAT WAS HERE LAST NIGHT TOLD THE THERAPIST TO SAY THAT. PT STATES HE WILL PARTICIPATE WITH THERAPY HE DOES WANT TO GO TO [facility]. CM FAXED REFERRAL TO [facility] AT [phone]. CM WAITING ADMISSION DETERMINATION FROM [facility] FOR [facility] REHAB SERVICES. Larry Estes, CASE MANAGEMENT DCP- Discharge Planning Updated by [id number]: Larry Estes on 09/22/18 3:[address] Patient Name: JAMMIE GREEN Encounter No: [id number] : 1950 Primary Insurance: MEDICARE A & B Anticipated DC Date: 09-25-2018 Planned Disposition: Detention Facility External Planned Provider: [facility], MEDICARE REHAB BED DCP follow-up note: CM RECEIVED ORDER FOR REHAB CLOSE TO PT'S HOME, MET WITH PT IN ROOM, DISCUSSED REHAB OPTIONS, PROVIDED [facility] FACILITY LISTING. PT SIGNED CHOICE FOR [facility] AND [facility]. IMPORTANT MESSAGE FROM MEDICARE PROVIDED AND EXPLAINED. CM CALLED MORAIMA AT [facility], , THEY CAN SERVICE 5 LITERS OXYGEN, WILL REVIEW REHAB REFERRAL. CM FAXED REFERRAL TO [facility] AT [phone]. CM WAITING ADMISSION DETERMINATION FROM [facility] FOR [facility] REHAB SERVICES. Larry Estes CASE MANAGEMENT DCP- Discharge Planning Updated by [id number]: Becky Fontenot on 09/18/18 11:[address] CM called daughter and CEFERINO verbalized for [facility] out of [place] [phone]. Doctor Milton spoke with daughter this morning and he told her that he would see about getting patient transferred back to [facility] in accordance to a transfer back agreement. CM will contact transfer center to see if patient can transfer back although CM can't find a transfer back agreement. CM will continue to follow and assist as needed with discharge planning / needs. DCP- Discharge Planning Updated by [id number]: Becky Fontenot on 09/12/18 4:[address] Patient Name: JAMMIE GREEN Admission Status: ER Accout number: [id number] Admission Date: 09-11-2018 : 1950 Admission Diagnosis: Attending: CATRACHO MERRITT Current LOS: 1 Anticipated DC Date: Planned Disposition: Home Primary Insurance: MEDICARE A & B Discharge Planning Comments: CM met with daughter at bedside patient is currently intubated on vent. CM explained role and received verbal consent to evaluate. Patient lives with daughter Abiola. Abiola stated that the patient was in hospital in [place] 3 weeks ago for COPD. He was discharged with home and portable 02 with [facility]. They had set up patient with Home Health but patient refused once they came to admit. Abiola states that he will need home health when discharged from here. Abiola will get back with CM on what agency she wants to go with. CM will continue to follow and assist as needed with discharge planning / needs. Vice President Global Advertising Sales: Becky Fontenot DCPIA - Discharge Planning Initial Assessment Updated by [id number]: Becky Fontenot on 09/12/18 4:58 pm * Is the patient Alert and Oriented? Yes * How many steps to enter\\exit or inside your home? * [facility] * Pharmacy [facility] * Preadmission Environment Home with Family * ADLs Independent * Equipment Oxygen * Other Equipment HOME 02 & PORT 02, NEBULIZER - [facility] * List name and contact numbers for known caregivers / representatives who currently or will assist patient after discharge: ABIOLA ALONSO - DAUGHTER- [phone] * Verbal permission to speak to the caregivers and representatives has been obtained from the patient. N/A * Community resources currently utilized None * Additional services required to return to the preadmission environment? No * Can the patient safely return to the preadmission environment? Yes * Has this patient been hospitalized within the prior 30 days at any hospital? Yes Coverage Notice Reviewer: [id number] Sharla Fontenot Notice Issued Date-Time: 09/18/2018 11:50 Notice Type: Patient Choice Letter Notice Delivered To: Family Member Relationship to Patient: Daughter Real Estate Associate Attorney Name: Abiola Alonso Delivery Method: PHONE - Phone Nancy Days: Prior Verbal Notification: Recipient Understood Notice: Yes Recipient Signature: Med Rec Note Co-signed by Attending: Coverage Notice Comment: Reviewer: [id number] Estes Notice Issued Date-Time: 09/22/2018 14:55 Notice Type: IM Discharge Notice Notice Delivered To: Patient Relationship to Patient: Real Estate Associate Attorney Name: Delivery Method: HAND - Hand Delivered Nancy Days: Prior Verbal Notification: Recipient Understood Notice: Yes Recipient Signature: Yes Med Rec Note Co-signed by Attending: Coverage Notice Comment: Reviewer: [id number] Estes Notice Issued Date-Time: 09/22/2018 14:55 Notice Type: Patient Choice Letter Notice Delivered To: Patient Relationship to Patient: Real Estate Associate Attorney Name: Delivery Method: HAND - Hand Delivered Nancy Days: Prior Verbal Notification: Recipient Understood Notice: Yes Recipient Signature: Yes Med Rec Note Co-signed by Attending: Coverage Notice Comment: [facility] Reviewer: [id number] Sharla Estes Notice Issued Date-Time: 09/26/2018 16:09 Notice Type: IM Discharge Notice Notice Delivered To: Patient Relationship to Patient: Real Estate Associate Attorney Name: Delivery Method: HAND - Hand Delivered Nancy Days: Prior Verbal Notification: Recipient Understood Notice: Yes Recipient Signature: Yes Med Rec Note Co-signed by Attending: Coverage Notice Comment: Last DP export: 09/26/18 11:50 a Patient Name: JAMMIE GREEN Page [phone] at 1615 All edits/amendments must be made on the electronic document DICTATION DATE: 09/26/18 1615 FUEL SYSTEM MAINTENANCE WORKER: CHRIS 09/26/18 1615 RPT#: [id number] DC DATE: STATUS: ADM IN [facility] [address] [place] [address] END OF REPORT
[2018-09-26 17:26] VITALS: BP 122/72
[2018-09-26] MEDS ORDERED: IPRAT-ALBUT 0.5-3 ML UPD (17:39)
[2018-09-26] MEDS ORDERED: ALBUTEROL2.5 MG/3 M INH (17:39)
--- NOTE | 2018-09-26 18:12 | NUR ---
DISCHARGE ORDER PLACED FOR IN THE AM OF 09/27/18. DAUGHTER WILL LINUX SYSTEM ADMIN PT @9AM. PT HAPPY ABOUT THIS AND DENIES ANY CURRENT NEEDS. WILL PASS OFF IN REPORT.
[2018-09-26] MEDS ORDERED: LISINOPRIL10 MG PO (18:28)
--- NOTE | 2018-09-26 19:05 | NUR ---
PT REFUSES EXAM STATING IM NOT REALLY HERE ANYMORE DOES ALLOW ME TO LISTEN TO LUNGS THEY ARE CLEAR BUT DEMINISHD SKIN IS WARM AND DRY BED IS NOTED LOCKED AND CALL LIGHT IS NEXT TO PT
[2018-09-26 20:00] VITALS: BP 106/60
--- NOTE | 2018-09-26 23:52 | NUR ---
PTS SPO2 BETWEEN 85 AND 90 BUT IS A BIT HOSTILE TOWARD TECH AND REFUSES TO RESPOND TO MY REQUEST STATING IM NOT DOING ANYTHING WITH ALL YOU PEOPLE IN HERE
[2018-09-27] VITALS: BP 100/69
[2018-09-27 04:00] VITALS: BP 109/55
--- NOTE | 2018-09-27 04:15 | NUR ---
I have reviewed this patient and I concur with the Shift Assessment completed by the Licensed Practical Nurse today this shift.
--- NOTE | 2018-09-27 08:41 | NUR ---
Patient Name: JAMMIE GREEN Encounter No: [id number] : 1950 Primary Insurance: MEDICARE A & B Anticipated DC Date: 09-27-2018 Planned Disposition: Nursing Facility KRYSTAL Cert External [facility] Provider[facility], CHIEF DOG LICENSE INSPECTOR CARE MEDICAID BED late entry from 09-26-18, 1614 hours: DCP follow-up note: CM SPOKE TO [facility], THEY WILL ACCEPT PT INTO SKILLED REHAB BED. CM MET WITH PT AND DAUGHTER IN ROOM, PT'S DAUGHTER INFORMED CM THAT PT HAS BEEN ACCEPTED INTO [facility] CARE AT [facility]. PT DECLINES PLACEMENT AT [facility]. CM CALLED [facility] WHO INFORMED CM THAT THEY HAVE ACCEPTED INTO CHIEF DOG LICENSE INSPECTOR CARE BED, PT WILL NEED A BIPAP PRIOR TO ADMISSION IF ONE IS ORDERED FOR DISCHARGE. CM SPOKE TO [facility]ORY [facility]ERAP[facility] WHO RECEIVED MESSAGE FROM DR. FIGUEROA THAT NO BIPAP WILL BE ORDERED FOR DISCHARGE. CM NOTIFIED [facility], PT AND DAUGHTER. PT'S DAUGHTER WILL TRANSPORT IN THE MORNING TO THE REHAB. THE REHAB WILL ACCEPT TOMORROW BEFORE 1PM. IMPORTANT MESSAGE FROM MEDICARE PROVIDED AND EXPLAINED. FOR DISCHARGE, FAX DISCHARGE INFORMATION TO [facility], , NURSE REPORT TO BE CALLED TO [facility] AT [phone]. PT'S DAUGHTER HAS PORTABLE OXYGEN AND WILL TRANSPORT TO REHAB. Larry Estes, CASE MANAGEMENT
--- NOTE | 2018-09-27 08:55 | NUR ---
REVIEWED DISCHARGE PAPERS WITH THE PATIENT AND HIS DAUGHTER, PATIENT IS TRANSPORTING THE PATIENT BACK TO THE HALF-WAY. PATIENT REFUSED ALL MEDICATIONS AND ASSESSMENT, STATING "IM READY TO GO, I HAVENT SLEPT ALL NIGHT", HE IS DRESSED AND READY TO GO. DAUGHTER HAS PORTABLE O2 TAKE FOR TRANSPORT. REPORT CALLED TO , SPOKE TO JOSÉ MIGUEL Wilks LPN
--- NOTE | 2018-09-27 08:58 | MORECARE ---
CASE MANAGEMENT DISCHARGE SUMMARY PATIENT: JAMMIE GREEN UNIT: [id number] ADM DATE: 09/11/18 AGE: 67 : 51 SEX: M ROOM/BED: D.2109 AUTHOR: SAMMIE,DOC PHYSICIAN: REFERRING PHYSICIAN: CATRACHO MERRITT DO DATE OF SERVICE: 09/27/18 Discharge Plan Patient Name: JAMMIE GREEN Facility: [facility]:[place] : 1950 Planned Disposition: Nursing Facility KRYSTAL Cert Anticipated Discharge Date: 09/27/18 Discharge Date: Expected LOS: 16 Initial Reviewer: [id number] Initial Review Date: 09/11/2018 Generated: 09/27/18 9:57 am Comments DCP- Discharge Planning Updated by [id number]: Larry Estes on 09/27/18 7:[address] Patient Name: JAMMIE GREEN Encounter No: [id number] : 1950 Primary Insurance: MEDICARE A & B Anticipated DC Date: 09-27-2018 Planned Disposition: Nursing Facility [facility] External Planned Provider:[facility], SNF CARE MEDICAID BED DCP follow-up note: CM RECEIVED DISCHARGE INFORMATION, FAXED DISCHARGE INFORMATION TO [facility], , NURSE REPORT TO BE CALLED TO [facility] AT [phone]. PT'S DAUGHTER HAS PORTABLE OXYGEN AND WILL TRANSPORT TO REHAB. MICHELE Baltazar DCP- Discharge Planning Updated by [id number]: Larry Estes on 09/26/18 11:[address] Patient Name: JAMMIE GREEN Encounter No: [id number] : 1950 Primary Insurance: MEDICARE A & B Anticipated DC Date: 09-25-2018 Planned Disposition: [facility] Facility External Planned Provider: [facility], MEDICARE REHAB BED DCP follow-up note: [facility]IA [employer] AT [phone]. CM SPOKE TO PT AND DAUGHTER IN ROOM, BOTH ASKED THAT REFERRAL BE FAXED TO [facility], CHOICE WAS PREVIOUSLY SIGNED. CM FAXED REFERRAL TO [facility], . PT'S DAUGHTER HAS ALREADY CONTACTED [facility] IN [place] TO REQUEST REHAB / BOARD FILLER CARE PLACEMENT. CM WAITING ADMISSION DETERMINATIONS FROM [facility] AND [facility]. Larry Estes CASE MANAGEMENT DCP- Discharge Planning Updated by [id number]: Larry Estes on 09/25/18 3:[address] Patient Name: JAMMIE GREEN Encounter No: [id number] : 1950 Primary Insurance: MEDICARE A & B Anticipated DC Date: 09-25-2018 Planned Disposition: [facility] Facility External Planned Provider: [facility] MEDICARE REHAB BED DCP follow-up note: CM RECEIVED CALL FROM MORAIMA OF [facility], PT HAS REFUSED BIPAP AND HAS REFUSED THERAPY, [facility] WILL NOT ACCEPT PT DUE TO NON COMPLIANCE. CM NOTIFIED PT WHO INFORMED CM "WELL I GOT TO GO SOMEWHERE, I CAN'T GO HOME LIKE THIS". CM ENCOURAGED PT TO WEAR BIPAP AND PARTICIPATE WITH ALL THERAPY. PT DID NOT SAY HE WOULD DO IT. PT DID TELL CM TO SEND REFERRAL TO THE "OTHER PLACE" THAT HIS DAUGHTER TALKED ABOUT LAST WEEK. CM CALLED PT'S DAUGHTER, ABIOLA ALONSO - DAUGHTER- [phone], WHO ASKED CM TO SEND REFERRAL TO [facility] FOR REHAB AND SHE WILL CALL AND SPEAK TO HER FATHER ABOUT FOLLOWING MEDICAL ORDERS. SHE IS CONCERNED THAT PT IS BECOMING MORE CONFUSED. CM DISCUSSED BOARD FILLER CARE PLACEMENT IF REHAB IS NOT AN OPTION. ABIOLA STATES PT LIVES IN A [place] BESIDE HER HOME, HAS NO ASSETS AND RECEIVES $1000 PER MONTH IN BENEFITS. IF USP IS NEEDED, THERE IS A [facility]P IN [place] THAT CM CAN SEND REFERRALS TO. CM FAXED REFERRAL TO [facility] VIA [facility] AT [phone]. CM NOTIFIED PATTY OF REHAB REFERRAL AT [phone]. CM WAITING ADMISSION DETERMINATION FROM [facility]. [facility] REFUSED PT HE IS NOT PARTICIPATING WITH THERAPY SERVICES AND REFUSING BIPAP. CM MAY HAVE TO ATTEMPT SNF CARE PLACEMENT IN [facility] IF PT DOES NOT COMPLY WITH THERAPY SERVICES AND BIPAP USE. Larry Estes CASE MANAGEMENT DCP- Discharge Planning Updated by [id number]: Larry Estes on 09/25/18 8:[address] Patient Name: JAMMIE GREEN Encounter No: [id number] : 1950 Primary Insurance: MEDICARE A & B Anticipated DC Date: 09-25-2018 Planned Disposition: [facility] Facility External Planned Provider:[facility] MEDICARE REHAB BED DCP follow-up note: CM SPOKE TO PT IN ROOM, PT IN AGREEMENT WITH DISCHARGE TO REHAB AT [facility]. CM ENCOURAGED PT TO WEAR BIPAP, PT STATES HE HAS BEEN WEARING IT BUT REFUSED WHEN THE BIG STORM CAME THROUGH STATING HE WAS NOT GOING TO RISK ELECTROCUTION FROM LIGHTENING. CM ENCOURAGED PT TO PARTICIPATE WITH EACH THERAPY SESSION. PT DENIES HE REFUSED ANYTHING AND STATES THE GIRL THAT WAS HERE LAST NIGHT TOLD THE THERAPIST TO SAY THAT. PT STATES HE WILL PARTICIPATE WITH THERAPY HE DOES WANT TO GO TO [facility]. CM FAXED REFERRAL TO [facility] AT [phone]. CM WAITING ADMISSION DETERMINATION FROM [facility] FOR LONGTERM REHAB SERVICES. Larry Estes CASE MANAGEMENT DCP- Discharge Planning Updated by [id number]: Larry Estes on 09/22/18 3:[address] Patient Name: JAMMIE GREEN Encounter No: [id number] : 1950 Primary Insurance: MEDICARE A & B Anticipated DC Date: 09-25-2018 Planned Disposition: [facility] Facility External Planned Provider: [facility] MED[facility]ARE REHAB BED DCP follow-up note: CM RECEIVED ORDER FOR REHAB CLOSE TO PT'S HOME, MET WITH PT IN ROOM, DISCUSSED REHAB OPTIONS, PROVIDED LONGTERM FACILITY LISTING. PT SIGNED CHOICE FOR [facility], [facility]. IMPORTANT MESSAGE FROM MEDICARE PROVIDED AND EXPLAINED. CM CALLED MORAIMA AT [facility], , THEY CAN SERVICE 5 LITERS OXYGEN, WILL REVIEW REHAB REFERRAL. CM FAXED REFERRAL TO [facility] AT [phone]. CM WAITING ADMISSION DETERMINATION FROM [facility] FOR LONGTERM REHAB SERVICES. Larry Estes, CASE MANAGEMENT DCP- Discharge Planning Updated by [id number]: Becky Fontenot on 09/18/18 11:[address] CM called daughter and CEFERINO verbalized for [facility] out of [place] [phone]. Doctor Milton spoke with daughter this morning and he told her that he would see about getting patient transferred back to [facility] in accordance to a transfer back agreement. CM will contact transfer center to see if patient can transfer back although CM can't find a transfer back agreement. CM will continue to follow and assist as needed with discharge planning / needs. DCP- Discharge Planning Updated by [id number]: Becky Corie on 09/12/18 4:[address] Patient Name: JAMMIE GREEN Admission Status: ER Accout number: [id number] Admission Date: 09-11-2018 : 1950 Admission Diagnosis: Attending: CATRACHO MERRITT Current LOS: 1 Anticipated DC Date: Planned Disposition: Home Primary Insurance: MEDICARE A & B Discharge Planning Comments: CM met with daughter at bedside patient is currently intubated on vent. CM explained role and received verbal consent to evaluate. Patient lives with daughter Abiola. Abiola stated that the patient was in hospital in [place] 3 weeks ago for COPD. He was discharged with home and portable 02 with [facility]. They had set up patient with Home Health but patient refused once they came to admit. Abiola states that he will need home health when discharged from here. Abiola will get back with CM on what agency she wants to go with. CM will continue to follow and assist as needed with discharge planning / needs. Ammonium Hydroxide Operator: Becky Fontenot DCPIA - Discharge Planning Initial Assessment Updated by [id number]: Becky Acharyar on 09/12/18 4:58 pm * Is the patient Alert and Oriented? Yes * How many steps to enter\\exit or inside your home? * [facility] * Pharmacy [facility] * Preadmission Environment Home with Family * ADLs Independent * Equipment Oxygen * Other Equipment HOME 02 & PORT 02, NEBULIZER - [facility] * List name and contact numbers for known caregivers / representatives who currently or will assist patient after discharge: ABIOLA ALONSO - DAUGHTER- [phone] * Verbal permission to speak to the caregivers and representatives has been obtained from the patient. N/A * Community resources currently utilized None * Additional services required to return to the preadmission environment? No * Can the patient safely return to the preadmission environment? Yes * Has this patient been hospitalized within the prior 30 days at any hospital? Yes Coverage Notice Reviewer: [id number] - Becky Fontenot Notice Issued Date-Time: 09/18/2018 11:50 Notice Type: Patient Choice Letter Notice Delivered To: Family Member Relationship to Patient: Daughter Offbearer Name: Abiola Alonso Delivery Method: PHONE - Phone Nancy Days: Prior Verbal Notification: Recipient Understood Notice: Yes Recipient Signature: Med Rec Note Co-signed by Attending: Coverage Notice Comment: Reviewer: MINNIE Estes Notice Issued Date-Time: 09/22/2018 14:55 Notice Type: IM Discharge Notice Notice Delivered To: Patient Relationship to Patient: Offbearer Name: Delivery Method: HAND - Hand Delivered Nancy Days: Prior Verbal Notification: Recipient Understood Notice: Yes Recipient Signature: Yes Med Rec Note Co-signed by Attending: Coverage Notice Comment: Reviewer: MINNIE Estes Notice Issued Date-Time: 09/22/2018 14:55 Notice Type: Patient Choice Letter Notice Delivered To: Patient Relationship to Patient: Offbearer Name: Delivery Method: HAND - Hand Delivered Nancy Days: Prior Verbal Notification: Recipient Understood Notice: Yes Recipient Signature: Yes Med Rec Note Co-signed by Attending: Coverage Notice Comment: [facility] Reviewer: [id number] Estes Notice Issued Date-Time: 09/26/2018 16:09 Notice Type: IM Discharge Notice Notice Delivered To: Patient Relationship to Patient: Offbearer Name: Delivery Method: HAND - Hand Delivered Nancy Days: Prior Verbal Notification: Recipient Understood Notice: Yes Recipient Signature: Yes Med Rec Note Co-signed by Attending: Coverage Notice Comment: Last DP export: 09/26/18 3:15 p Patient Name: JAMMIE GREEN Page [phone] at 0858 All edits/amendments must be made on the electronic document DICTATION DATE: 09/27/18856 DEICER FINISHER: CHRIS 09/27/18 0857 RPT#: [id number] DC DATE: STATUS: ADM IN [facility] [address] [place] [address] END OF REPORT
== END 2018-09-27 09:13 | DRG 871 ==
LOC: D.ER 17:11 → D.ICU 19:35 → D.M2 19:35 → D.M3 09-20 16:29 → D.M2 09-20 19:10
PROVIDERS: Emergency Medicine; Internal Medicine Nephrology; Internal Medicine Pulmonary Disease; ADMIT Family Medicine; ATTEND Family Medicine
PROC: 0B9F8ZX Drainage of Right Lower Lung Lobe, Via Natural or Artificial Opening Endoscopic, Diagnostic (ICD-10-PCS; principal; 2018-09-12)
PROC: 0B9G8ZX Drainage of Left Upper Lung Lobe, Via Natural or Artificial Opening Endoscopic, Diagnostic (ICD-10-PCS; 2018-09-12)
PROC: 5A1945Z Respiratory Ventilation, 24-96 Consecutive Hours (ICD-10-PCS; 2018-09-12)
DX: A41.9 Sepsis, unspecified organism (principal); J96.21 Acute and chronic respiratory failure with hypoxia; J96.02 Acute respiratory failure with hypercapnia; J18.9 Pneumonia, unspecified organism; I50.23 Acute on chronic systolic (congestive) heart failure; F17.203 Nicotine dependence unspecified, with withdrawal; N17.9 Acute kidney failure, unspecified; I48.91 Unspecified atrial fibrillation; R73.9 Hyperglycemia, unspecified; K80.20 Calculus of gallbladder without cholecystitis without obstruction; I71.4 Abdominal aortic aneurysm, without rupture; J43.9 Emphysema, unspecified